=== PATIENT | male | born 1955 | race Caucasian/White ===

== ENCOUNTER 2016-09-30 05:54 | Inpatient (IN) | payer OTHER ==
--- NOTE | 2016-09-26 15:31 | HPE ---
DATE OF ADMISSION: 09/30/2016 ATTENDING PHYSICIAN: Dr. Srinivas Foster ADMISSION DIAGNOSIS: Back pain, pain radiating to both lower extremities. HISTORY: This is a pleasant 61-year-old male patient with progressive back pain and pain radiating down both legs, he has inability to walk more than a quarter mile without symptoms into both lower extremities. He has failed to improve with activity modification, nonsteroidal anti-inflammatory drugs (NSAIDS) in the form of Naproxen and physical therapy, continues to have symptoms with normal day-to-day activities. He has also been through epidural steroid injections without much improvement. His x-rays of his lumbar spine are notable for multilevel degenerative changes and a grade 1 spondylolisthesis at L4-5. MRI is consistent with severe spinal stenosis at 3-4, at 2-3 and 4-5 as well as a grade 1 spondylolisthesis at 4-5. Medical optimization pending with Dr. Yung, though is not present for review today. ALLERGIES: PENICILLIN from when he was a child and it caused hives. He has had numerous procedures before any he believes he has used cephalexin but he is not quite sure. CURRENT MEDICATIONS: He is on Flonase 50 mcg two sprays in each nostril daily. He has discontinued his aspirin and his naproxen. He also discontinued his Percocet. MEDICAL CONDITIONS: Include amaurosis fugax. He also has trigeminal neuralgia, psoriasis, elevated cholesterol and carotid artery stenosis. He has had a carpal tunnel release of both wrists. He has had complete dentures. He has also had a carotid artery bypass on the right side. FAMILY HISTORY: Heart disease in his mother and in his father. SOCIAL HISTORY: He is a former smoker. Does not use alcohol. REVIEW OF SYSTEMS: Denies fever or chills. Denies chest pain, shortness of breath or cough. Denies difficulty breathing. He did have an episode of fullness in his sinuses that he had been treated with Levaquin by his primary, but his sinuses are asymptomatic currently. No shortness of breath and no cough. No difficulty breathing. No change in his bowel or bladder habits. No loss of bowel or bladder control. He has persistent back pain and persistent pain down both legs with activities. PHYSICAL EXAMINATION: Today: Reveals a well-nourished, well-developed, alert male patient who walks with a slow gait. His gait is not wide-based. He does slightly favor the left side on examination today. Straight leg raise testing is equivocal bilaterally. Deep tendon reflexes are absent in knees, absent in ankles. Exam of the back reveals skin to be intact. No erythema, edema or ecchymosis. There is diffuse tenderness along the lumbar spine without step-offs or deviations. Neck is supple without adenopathy or jugular venous distention (JVD). Lungs are clear to auscultation without rales or wheeze. Heart regular rate and rhythm. Abdomen bowel sounds are present. Dorsalis pedis, posterior tibial pulses are palpable in both lower extremities, well-perfused bilateral lower extremities. Current vital signs are height of 5 feet 8 inches, weight 172 pounds, temperature 96, pulse 84, respirations 16, blood pressure 108/68. IMPRESSION: Symptomatic spinal stenosis and bilateral neurogenic claudication as well as spondylolisthesis at 4-5. PLAN: He is consented for a left unilateral decompression at L2-L5 as well as lumbar fusion L4-5 with pedicle screws.
[~2016-09-30] VITALS: Ht 175.3 cm; Wt 76.4 kg
[~2016-09-30 05:54] MED LIST: ACET500C PO; ASPI1TAB PO; AZEL0.1S3; CLAR10CA3 PO; FLUT1LOT; LEVA500T PO; NAPR500T2 PO; NEUR300C PO
[2016-09-30] MEDS ORDERED: LR 1,000 ML IV SCH ×2 (06:00→14:45)
[2016-09-30] MEDS ORDERED: PREGABALIN 75 MG CAP(LYRICA) PO ONE (06:00)
[2016-09-30] MEDS ORDERED: PERCOCET 5MG/325MG TAB PO ONE (06:00)
[2016-09-30] MEDS ORDERED: BACITRACIN PWD 50,000 UNITS VIAL As Ordered ONE (07:13)
[2016-09-30] MEDS ORDERED: LIDOCAINE 2% INJ 100 MG/5 ML SDV (FOR ANES.) As Ordered ONE (07:13)
[2016-09-30] MEDS ORDERED: VANCOMYCIN HCL 500 MG/10 ML VIAL (J3370) As Ordered ONE (07:13)
[2016-09-30] MEDS ORDERED: BUPIVACAINE/EPIN 0.25% 30 ML VIAL As Ordered ONE (07:13)
[2016-09-30] MEDS ORDERED: ROCURONIUM BROMIDE 50 MG/5 ML VIAL As Ordered ONE ×4 (07:13→17:21)
[2016-09-30] MEDS ORDERED: dexameTHASONE 4 MG/ML 1ML VIAL (J1100) As Ordered ONE (07:13)
[2016-09-30] MEDS ORDERED: PROPOFOL 200 MG/20 ML VIAL As Ordered ONE (07:13)
[2016-09-30] MEDS ORDERED: THROMBIN SOLN 20,000 UNITS KIT As Ordered ONE (07:14)
[2016-09-30] MEDS ORDERED: fentaNYL 250 MCG/5 ML INJECTION (J3010) As Ordered ONE (07:15)
[2016-09-30] MEDS ORDERED: MIDAZOLAM INJ 2 MG/2 ML VIAL (J2250) As Ordered ONE (07:15)
[2016-09-30] MEDS ORDERED: ONDANSETRON 4MG/2ML VIAL (J2405) As Ordered ONE ×2 (09:42→17:08)
[2016-09-30] MEDS ORDERED: GLYCOPYRROLATE INJ 0.2 MG/ML 2 ML VIAL As Ordered ONE ×2 (09:42→18:13)
[2016-09-30] MEDS ORDERED: NEOSTIGMINE 1MG/ML 5 ML SYRINGE (J2710) As Ordered ONE ×2 (09:42→18:11)
[2016-09-30] MEDS ORDERED: PHENYLephrine HCL 500 MCG/5 ML (100MCG/ML) SYRINGE (J2370) As Ordered ONE ×2 (10:31→12:19)
[2016-09-30] MEDS ORDERED: ePHEDrine SULFATE 25 MG/5 ML(5MG/ML) SYRINGE As Ordered ONE (10:55)
[2016-09-30] MEDS ORDERED: PHENYLEPHRINE INJ 10MG/ML VIAL (J2370) As Ordered ONE (11:25)
[2016-09-30] MEDS ORDERED: HYDROmorphone HCL 2 MG/ML 1ML VIAL (J1170) As Ordered ONE ×2 (11:37→17:44)
[2016-09-30] MEDS ORDERED: ceFAZolin 2 GM/D5W 50 ML IV BAG (J0690) As Ordered ONE (12:22)
--- NOTE | 2016-09-30 12:59 | REP ---
Partial lumbar spine series: Cross-table lateral single view. History: Spinal stenosis. Findings: A single cross-table lateral view time stamp 9 a.m. demonstrates an intraoperative metallic probe at the dorsal aspect of the spinal canal at the level of the L4-5 disc. Signed by Juan C Crump MD 09/30/2016 02:34 P
[2016-09-30] MEDS ORDERED: HYDROmorphone HCL 1 MG/ML SYRINGE (J1170) IV PRN ×3 (14:45→15:00)
[2016-09-30] MEDS ORDERED: fentaNYL 100 MCG/2 ML INJECTION (J3010) IV PRN (14:45)
[2016-09-30] MEDS ORDERED: ONDANSETRON 4MG/2ML VIAL (J2405) IV PRN (14:45)
[2016-09-30] MEDS ORDERED: ACETAMINOPHEN TAB 650MG DOSE (2X325MG) PO PRN (15:00)
[2016-09-30] MEDS ORDERED: PROMETHAZINE INJ 25 MG/ML VIAL (J2550) IV PRN (15:00)
[2016-09-30 15:45] VITALS: BP 109/63
[2016-09-30 16:15] VITALS: BP 99/63
--- NOTE | 2016-09-30 16:37 | RO ---
DATE OF PROCEDURE: 09/30/2016 PREOPERATIVE DIAGNOSES: Lumbar spinal stenosis multilevel L2-3, 3-4, 4-5, lumbar spondylolisthesis L4-5, neurogenic claudication. POSTOPERATIVE DIAGNOSES: Lumbar spinal stenosis multilevel L2-3, 3-4, 4-5, lumbar spondylolisthesis L4-5, neurogenic claudication. PROCEDURE PERFORMED: Includes the following, posterior lumbar left unilateral laminectomy and decompression L2-L5 with posterior spinal fusion intertransverse technique L4-5. SPECIFIC CODING FOR THE PROCEDURES: L2 left unilateral laminectomy for decompression of thecal sac and nerve roots, L3 unilateral laminectomy left additional level, L4 unilateral laminectomy left additional level, L5 unilateral laminectomy additional level. Posterior arthrodesis intertransverse type at L4-5. Posterior non-segmental instrumentation at L4-5. Pedicle screws, right iliac crest morselized autograft for spine surgery harvested through a separate fascial incision, 15 mL of crushed cancellus chips donor allograft used. SURGEON: Dr. Foster INSIDE SALES ASSISTANT: Joselito Alonzo, UGO. ESTIMATED BLOOD LOSS: 350 mL replaced with crystalloid. ANESTHESIA: General. COMPLICATIONS: None. INDICATIONS: 61-year-old gentleman with progressive discomfort radiating to both legs, going on for a number of months. Failing numerous conservative management with MRI and plain x-ray evidence of both spinal stenosis as well as spondylolisthesis. The spinal stenosis spans L2-L5 and spondylolisthesis of L4-5. Next, the patient has elected for operative intervention. Consent reviewed in detail including a aline discussion of the pathology involved, the procedure proposed, alternatives including doing nothing, risks including but not limited to pain, failure, infection, bleeding blood loss, incomplete relief of symptoms, nerve injury, need for more surgery and other problems. The patient agrees to proceed. OPERATIVE COURSE: Identified in the holding area. Site and side verified. Brought to the operating room. General endotracheal anesthesia was administered. He was positioned on the Andriy frame for exposure of the lumbar spine. Once I and the news camera person were comfortable with the patient's positioning he was then sterilely prepped and draped in usual fashion for exposure of the lumbar spine. Next, time-out was accomplished. Mr. Alonzo initially stood on the patient's right and Lico on the patient's left, but throughout the procedure for different portions we did switch sides. The first portion of the procedure I accomplished using the loupe magnification as well headlamp. Next, one of the incision was infiltrated by Mr. Alonzo with 0.25% Marcaine with epinephrine based on bony landmarks. I made the incision with a #10 blade knife developed down through skin and subcuticular tissues to the posterior lumbar fascia. The incision length was approximately 15 cm long. Next, step-off at 4-5 was identified and the dissection continued down the interspace of 4-5. I utilized a high-speed bur to create a 5 mm divot in the posterior lamina of L4. I placed a [employer] probe in the divot. We obtained a cross-table lateral x-ray to verify our level. Once this was accomplished we then continued the dissection superiorly on the patient's left side up to the L2-3 level and inferiorly over L5 and dissected out over the transverse processes of 4 and 5 on the patient's left side. We similarly exposed the interspace at the 4-5 on the patient's right side including the dissection with Mr. Alonzo utilizing the Jazmine retractors to assist out of the transverse processes of L4 and L5 but not extending superiorly as much. Next, once the exposure was accomplished the appropriate retractors were installed to expose L2-L5. I removed some posterior lamina using [place] and this bone was retained as bone graft. Next, once this was accomplished the operating microscope was brought in for the next portion of the procedure. Mr. Alonzo looked through oculars on the microscope to the right side. I through oculars on the microscope left side. Use of the scope facilitated continued participation of Mr. Alonzo, who retracted and also used suction and safe use of the high-speed bur which was utilized to implement a left unilateral laminectomy beginning at L5 and continuing superiorly through the L2 level. Once the lateral portion laminectomy was accomplished, I did undercut spinous processes of 2, 3, 4 and the top of L5 to further decompress the midline and I utilized curved curettes and Kerrison's to remove ligamentum flavum very carefully. Once this portion of the dissection was accomplished I probed over the horizon in the contralateral lateral recess, the patient's right side and removed subarticular stenotic ligamentum flavum using the curette as well as the curved number 2 mm Kerrison's. Next, I also decompressed the patient's right lateral recess using #2 Kerrison's and the curved Kerrison's extending from 2 through L5. Next, once the decompression was adequate, I inspected for bleeding and I did not appreciate any bleeding. I did not appreciate any cerebrospinal fluid (CSF) leak. Next, once the decompression was found to be adequate we irrigated using warm saline solution. Next, it was time for pedicle screws. We removed the microscope out of the operative field. I exchanged my loupe and headlamp magnification changed into lead gowns and re-gowned. With the C-ARM draped, we came in with the C-ARM. Next, in the lateral view we identified the pedicle. I identified visually the mammillary process of L5 on the patient's right side in the mammillary process of L4 on the right side. I utilized the drill to open the mammillary process of L5 and L4 and then I utilized the pedicle finder followed by the ball-tip finder followed by the tap, 5-5 type to tap the pedicle tracts at 4 and 5. Once I had tap the pedicle tracts, I began utilizing a ball-tip to verify that we were within pedicle and that we had a bony endplate. Next, once this was accomplished, I measured for a 40 mm screw at L5 and the 01/28/40 screw was installed by myself and visualized fluoroscopically and then we obtained bone graft from the right iliac crest through a separate fascial incision. Mr. Arevalolillie assisted with exposure with Jazmine retractors while I obtained the bone graft. This fascial incision was irrigated and closed over a dry Gelfoam. Next, we decorticated the transverse processes of 4 and 5 and I placed iliac crest bone graft over the transverse processes of 4 and 5. I also placed some of local bone. Local bone had been harvested using the Lukens trap. I placed a local bone over the iliac crest bone graft. Next, I obtained the 45 mm / screw for the right side at L4 and this was installed and verified fluoroscopically. Next, we switched sides and the same process was accomplished on the patient's left side including placement of the left L5 pedicle screw first including verification of pedicle track. Placement of the 40 mm screw at L5. Placement decortication of the transverse processes and placement of iliac crest bone graft between the transverse processes and this was followed by placement of the L4 screw including sounding the pedicle tracts with the ball-tip guide, 45 mm screw on the left side at L4. Next, connecting rods were then placed at L4-5 on the patient's left side. Next, continuing I retracted the soft tissue on the patient's right side with the Jazmine retractor and then Eloise Emilyarmandolillie installed the connecting ministerio of L4 and L5 on the patient's right side and placed the end caps and the counter torque device was utilized to secure the ministerio after the ministerio was placed in slight distraction. Next, once this was accomplished the remaining iliac crest and local bone graft as well as 15 mL of crushed cancellus bone were placed in the interlaminar space on the right side between the lamina 4 and 5. This was accomplished after irrigation. Also approximately 750 mg of vancomycin crystals were placed within the midline of the wound and over the pedicle screws. Next, fascial tissue was reapproximated with interrupted Vicryl stitch. Minnie fascia and the deep dermis reapproximated with interrupted Vicryl stitch. Nylon was utilized on skin and dressing was applied. The patient did have antibiotics redosed at 4 hours into the procedure. The patient was moved to the hospital bed and extubated and moved to the recovery room in good condition for further details please refer to medical record. Mr. Arevalolillie was present and participated in the entirety of the case in capacity of senior court office assistant.
[2016-09-30 17:15] VITALS: BP 119/65
[2016-09-30 18:15] VITALS: BP 109/66
[2016-09-30] MEDS: ASCORBIC ACID 500 MG TAB PO SCH (20:50)
[2016-09-30] MEDS: DOCUSATE SODIUM 100 MG CAP PO SCH (20:50)
[2016-09-30] MEDS: GABAPENTIN 300 MG CAP PO SCH (20:50)
[2016-09-30 22:00] VITALS: BP 132/61
[2016-09-30] MEDS: PERCOCET 5MG/325MG TAB PO PRN (22:33)
[2016-10-01 02:00] VITALS: BP 126/69
[2016-10-01] MEDS: PERCOCET 5MG/325MG TAB PO PRN ×2 (03:59→08:22)
[2016-10-01] MEDS: ASCORBIC ACID 500 MG TAB PO SCH ×2 (08:21→21:00)
[2016-10-01] MEDS: LORATADINE 10 MG TAB PO SCH (08:21)
[2016-10-01] MEDS: FLUTICASONE PROP 0.05% NASAL SPRAY 16 GM (FLONASE) SCH (08:21)
[2016-10-01] MEDS: MOM 30ML SUSPENSION UDC PO SCH (08:21)
[2016-10-01] MEDS: DOCUSATE SODIUM 100 MG CAP PO SCH ×2 (08:21→21:00)
[2016-10-01] MEDS: ASPIRIN 81 MG CHEW TABLET PO SCH (08:21)
[2016-10-01] MEDS: GABAPENTIN 300 MG CAP PO SCH ×2 (08:21→21:00)
--- NOTE | 2016-10-01 09:17 | REP ---
Lumbar spine series: AP and lateral views. History: Postop. Comparison images are from September 30, 2016. Findings: AP and lateral views of the lumbar spine demonstrate transpedicular screw ministerio fixation bilaterally in place across the L4-5 level unchanged alignment from yesterday's study. A laminectomy defect is visible at 4-5 as well. Signed by Juan C Crump MD 10/01/2016 02:32 P
[2016-10-01 14:00] VITALS: BP 133/66
[2016-10-01 19:15] VITALS: BP 143/74
[2016-10-01 20:15] VITALS: BP 120/59
[2016-10-01 22:00] VITALS: BP 143/74
[2016-10-02] MEDS: CelecoXIB (CeleBREX) 100 MG CAP PO PRN (02:55)
[2016-10-02 06:00] VITALS: BP 121/69
[2016-10-02] MEDS: MOM 30ML SUSPENSION UDC PO SCH (08:18)
[2016-10-02] MEDS: ASPIRIN 81 MG CHEW TABLET PO SCH (08:18)
[2016-10-02] MEDS: LORATADINE 10 MG TAB PO SCH (08:18)
[2016-10-02] MEDS: ASCORBIC ACID 500 MG TAB PO SCH ×2 (08:18→22:56)
[2016-10-02] MEDS: DOCUSATE SODIUM 100 MG CAP PO SCH ×2 (08:18→21:00)
[2016-10-02] MEDS: FLUTICASONE PROP 0.05% NASAL SPRAY 16 GM (FLONASE) SCH (08:20)
[2016-10-02] MEDS: GABAPENTIN 300 MG CAP PO SCH ×2 (08:20→21:00)
[2016-10-02] MEDS: PERCOCET 5MG/325MG TAB PO PRN ×4 (08:22→22:57)
[2016-10-02] MEDS ORDERED: MAGNESIUM CITRATE 300 ML BTL PO ONE (14:00)
[2016-10-02 22:00] VITALS: BP 129/68
[2016-10-03] MEDS: PERCOCET 5MG/325MG TAB PO PRN ×3 (03:33→12:47)
[2016-10-03 06:00] VITALS: BP 113/55
[2016-10-03] MEDS: MOM 30ML SUSPENSION UDC PO SCH (07:43)
[2016-10-03] MEDS: ASCORBIC ACID 500 MG TAB PO SCH (08:11)
[2016-10-03] MEDS: ASPIRIN 81 MG CHEW TABLET PO SCH (08:11)
[2016-10-03] MEDS: DOCUSATE SODIUM 100 MG CAP PO SCH (08:11)
[2016-10-03] MEDS: CelecoXIB (CeleBREX) 100 MG CAP PO PRN (08:11)
[2016-10-03] MEDS: LORATADINE 10 MG TAB PO SCH (08:11)
[2016-10-03] MEDS: GABAPENTIN 300 MG CAP PO SCH ×2 (08:11→08:14)
[2016-10-03] MEDS: FLUTICASONE PROP 0.05% NASAL SPRAY 16 GM (FLONASE) SCH (08:12)
--- NOTE | 2016-10-09 09:59 | DSES ---
DATE OF ADMISSION: 09/30/2016 DATE OF DISCHARGE: 10/03/2016 ATTENDING: Dr. Foster ADMITTING DIAGNOSES: 1. Lumbar spinal stenosis L2 through L5. 2. Lumbar spondylolisthesis L4-5. 3. Neurogenic claudication. OTHER DIAGNOSES: 1. Amaurosis fugax. 2. Trigeminal neuralgia. 3. Psoriasis. 4. Elevated cholesterol. 5. Carotid artery stenosis. DISCHARGE DIAGNOSES: 1. Lumbar spinal stenosis L2 through L5. 2. Lumbar spondylolisthesis L4-5. 3. Neurogenic claudication. 4. Status post lumbar decompression L2 through L5 and lumbar posterior interbody fusion L4-5. HISTORY: This is a pleasant 61-year-old male with progressively worsening back pain and pain radiating to both legs. He failed to improve with conservative measures to include anti-inflammatories, physical therapy and epidural steroid injections. He elected for surgery for his continued symptoms. Studies were consistent with spinal stenosis and spondylolisthesis of the lumbar spine. OPERATION PERFORMED: Lumbar decompression unilateral laminectomy L2 through L5 and posterior spinal fusion interbody transverse at L4-5. HOSPITAL COURSE: The patient was admitted on day of surgery and underwent the above listed procedure which was uneventful. He did well in the postoperative period. His hospital course was without complications. He continued to improve throughout his hospital stay. On day of discharge, he was doing well and weightbearing as tolerated on the lower extremities. He will use his back brace as directed. He will take oral pain medications for pain control. He will resume his preoperative medications and diet. He was given instructions to include, but not limited to wound monitoring, activity limitations and the wear of the back brace. He will follow up in our office in 7-10 days for surgical followup. Please refer to the medical record for further details.
== END 2016-10-03 13:07 | disposition home or self-care (01) | DRG 304 ==
LOC: M OR 05:54 → M MS5PR 15:30
PROVIDERS: ADMIT Orthopaedic Surgery; ATTEND Orthopaedic Surgery
PROC: 0SG00AJ Fusion of Lumbar Vertebral Joint with Interbody Fusion Device, Posterior Approach, Anterior Column, Open Approach (ICD-10-PCS; 2016-09-30)
PROC: 0QB30ZZ Excision of Left Pelvic Bone, Open Approach (ICD-10-PCS; 2016-09-30)
PROC: 0SG00A1 (ICD-10-PCS; principal; 2016-09-30 07:30)
DX: M48.06 Spinal stenosis, lumbar region (principal); G45.3 Amaurosis fugax; G50.0 Trigeminal neuralgia; Z87.891 Personal history of nicotine dependence

== ENCOUNTER → 2017-05-13 | Outpatient (REF) | payer OTHER ==
[~2017-05-13] MED LIST changes: +LEVA1TAB2 PO; -LEVA500T PO; -NAPR500T2 PO; +NAPR500T3 PO
[2017-05-13 15:01] LABS: MEAN CORPUSCULAR HEMOGLOBIN 30.6 pg (27.0-33.0); MEAN CORPUSCULAR HGB CONC 33.2 g/dl (32.0-36.5); RED CELL DISTRIBUTION WIDTH 13.1 % (11.5-14.5); WHITE BLOOD COUNT 5.2 K/mm3 (4.0-10.0)
[2017-05-13 15:15] LABS: ALBUMIN 3.4 GM/DL (3.2-5.2); ALBUMIN/GLOBULIN RATIO 1.13 (1.00-1.93); ALKALINE PHOSPHATASE 91 U/L (45-117); ALT/SGPT 30 U/L (12-78); ANION GAP 7 MEQ/L (8-16); AST/SGOT 17 U/L (15-37); BILIRUBIN,TOTAL 0.5 MG/DL (0.2-1.0); BLOOD UREA NITROGEN 15 MG/DL (7-18); CALCIUM LEVEL 8.1 MG/DL (8.8-10.2); CARBON DIOXIDE LEVEL 27 MEQ/L (21-32); CHLORIDE LEVEL 109 MEQ/L (98-107); CHOLESTEROL LEVEL 239 MG/DL (<200); CREATININE FOR GFR 0.95 MG/DL (0.70-1.30); FERRITIN 49 NG/ML (26-388); GLOMERULAR FILTRATION RATE > 60.0 (>49); GLUCOSE, FASTING 88 MG/DL (80-110); PERCENT SATURATION 29.3 % (19.7-50.0); POTASSIUM SERUM 4.6 MEQ/L (3.5-5.1); SODIUM LEVEL 143 MEQ/L (136-145); TOTAL IRON BINDING CAPACITY 307 UG/DL (250-450); TOTAL PROTEIN 6.4 GM/DL (6.4-8.2); TRIGLYCERIDES LEVEL 103 MG/DL (<150)
== END ==
LOC: M SFHCLACO 10:16
PROVIDERS: ATTEND Physician Assistant
DX: E78.2 Mixed hyperlipidemia (principal); G45.3 Amaurosis fugax; I65.23 Occlusion and stenosis of bilateral carotid arteries; R79.89 Other specified abnormal findings of blood chemistry

== ENCOUNTER → 2017-09-09 | Outpatient (REF) | payer OTHER ==
[2017-09-09 16:37] LABS: ALBUMIN 3.7 GM/DL (3.2-5.2); ALBUMIN/GLOBULIN RATIO 1.16 (1.00-1.93); ALKALINE PHOSPHATASE 103 U/L (45-117); ALT/SGPT 33 U/L (12-78); ANION GAP 5 MEQ/L (8-16); AST/SGOT 18 U/L (7-37); BILIRUBIN,TOTAL 0.6 MG/DL (0.2-1.0); BLOOD UREA NITROGEN 14 MG/DL (7-18); CALCIUM LEVEL 8.8 MG/DL (8.8-10.2); CARBON DIOXIDE LEVEL 31 MEQ/L (21-32); CHLORIDE LEVEL 107 MEQ/L (98-107); CHOLESTEROL LEVEL 266 MG/DL (<200); CHOLESTEROL RISK RATIO 4.433 (<5); FERRITIN 49 NG/ML (26-388); GLOMERULAR FILTRATION RATE > 60.0 (>49); GLUCOSE, FASTING 100 MG/DL (80-110); HDL CHOLESTEROL 60 MG/DL (>40); IRON (FE) 114 UG/DL (65-175); NON-HDL-C 206 MG/DL; PERCENT SATURATION 35.1 % (19.7-50.0); POTASSIUM SERUM 4.6 MEQ/L (3.5-5.1); PSA SCREENING 0.69 NG/ML (< 4.0); SODIUM LEVEL 143 MEQ/L (136-145); TOTAL IRON BINDING CAPACITY 325 UG/DL (250-450); TOTAL PROTEIN 6.9 GM/DL (6.4-8.2); TRIGLYCERIDES LEVEL 120 MG/DL (<150)
[2017-09-09 17:01] LABS: HEMATOCRIT 43.1 % (42.0-52.0); MEAN CORPUSCULAR HEMOGLOBIN 29.6 pg (27.0-33.0); MEAN CORPUSCULAR HGB CONC 32.5 g/dl (32.0-36.5); MEAN CORPUSCULAR VOLUME 91.1 fl (80.0-96.0); PLATELET COUNT, AUTOMATED 252 10^3/uL (150-450); RED BLOOD COUNT 4.73 10^6/uL (4.30-6.10); WHITE BLOOD COUNT 6.1 10^3/uL (4.0-10.0)
== END ==
LOC: M SFHCLACO 10:04
DX: R79.89 Other specified abnormal findings of blood chemistry (principal); G45.3 Amaurosis fugax; E78.2 Mixed hyperlipidemia; I65.23 Occlusion and stenosis of bilateral carotid arteries; Z12.5 Encounter for screening for malignant neoplasm of prostate

== ENCOUNTER → 2017-09-24 | Outpatient (CLI) | payer OTHER | LOC: M SLEEP HO 12:41 | DX: F51.01 Primary insomnia (principal) ==

== ENCOUNTER 2017-11-24 11:12 | Day surgery (SDC) | payer OTHER ==
[2017-11-24] MEDS ORDERED: NS 1,000 ML IV (11:45)
[2017-11-24] MEDS ORDERED: PROPOFOL 200 MG/20 ML VIAL As Ordered (13:56)
== END 2017-11-24 15:12 | disposition home or self-care (01) ==
LOC: M OPP 11:12
DX: K62.5 Hemorrhage of anus and rectum (principal); K59.00 Constipation, unspecified; D12.2 Benign neoplasm of ascending colon; D12.4 Benign neoplasm of descending colon; K57.30 Diverticulosis of large intestine without perforation or abscess without bleeding; K64.8 Other hemorrhoids; K62.89 Other specified diseases of anus and rectum; E78.5 Hyperlipidemia, unspecified; M51.9 Unspecified thoracic, thoracolumbar and lumbosacral intervertebral disc disorder; G45.3 Amaurosis fugax; L40.50 Arthropathic psoriasis, unspecified; G50.0 Trigeminal neuralgia; F10.21 Alcohol dependence, in remission; Z86.73 Personal history of transient ischemic attack (TIA), and cerebral infarction without residual deficits; Z87.891 Personal history of nicotine dependence; Z88.8 Allergy status to other drugs, medicaments and biological substances; Z88.0 Allergy status to penicillin; Z79.82 Long term (current) use of aspirin; Z79.899 Other long term (current) drug therapy; Z98.1 Arthrodesis status
CPT/HCPCS: 45380

== ENCOUNTER → 2017-12-11 | Outpatient (REF) | payer OTHER ==
[2017-12-11 15:15] LABS: ALBUMIN 3.7 GM/DL (3.2-5.2); ALBUMIN/GLOBULIN RATIO 1.09 (1.00-1.93); ALKALINE PHOSPHATASE 106 U/L (45-117); ALT/SGPT 53 U/L (12-78); ANION GAP 6 MEQ/L (8-16); AST/SGOT 30 U/L (7-37); BILIRUBIN,TOTAL 0.6 MG/DL (0.2-1.0); BLOOD UREA NITROGEN 13 MG/DL (7-18); CALCIUM LEVEL 8.8 MG/DL (8.8-10.2); CARBON DIOXIDE LEVEL 31 MEQ/L (21-32); CHLORIDE LEVEL 106 MEQ/L (98-107); CHOLESTEROL LEVEL 273 MG/DL (<200); CHOLESTEROL RISK RATIO 4.475 (<5); CREATININE FOR GFR 1.11 MG/DL (0.70-1.30); GLOMERULAR FILTRATION RATE > 60.0 (>49); GLUCOSE, FASTING 97 MG/DL (70-100); HDL CHOLESTEROL 61 MG/DL (>40); NON-HDL-C 212 MG/DL; SODIUM LEVEL 143 MEQ/L (136-145); TOTAL PROTEIN 7.1 GM/DL (6.4-8.2); TRIGLYCERIDES LEVEL 125 MG/DL (<150)
== END ==
LOC: M SFHCLACO 09:35
DX: E78.2 Mixed hyperlipidemia (principal); G45.3 Amaurosis fugax; I65.23 Occlusion and stenosis of bilateral carotid arteries

== ENCOUNTER → 2018-04-07 | Outpatient (REF) | payer OTHER ==
[2018-04-07 15:23] LABS: ALBUMIN 3.5 GM/DL (3.2-5.2); ALBUMIN/GLOBULIN RATIO 1.06 (1.00-1.93); ALKALINE PHOSPHATASE 94 U/L (45-117); ALT/SGPT 26 U/L (12-78); ANION GAP 7 MEQ/L (8-16); AST/SGOT 17 U/L (7-37); BILIRUBIN,TOTAL 0.5 MG/DL (0.2-1.0); BLOOD UREA NITROGEN 16 MG/DL (7-18); CALCIUM LEVEL 8.5 MG/DL (8.8-10.2); CARBON DIOXIDE LEVEL 29 MEQ/L (21-32); CHLORIDE LEVEL 108 MEQ/L (98-107); CHOLESTEROL LEVEL 246 MG/DL (<200); CHOLESTEROL RISK RATIO 4.555 (<5); CREATININE FOR GFR 0.99 MG/DL (0.70-1.30); GLOMERULAR FILTRATION RATE > 60.0 (>49); GLUCOSE, FASTING 90 MG/DL (70-100); HDL CHOLESTEROL 54 MG/DL (>40); NON-HDL-C 192 MG/DL; POTASSIUM SERUM 4.4 MEQ/L (3.5-5.1); SODIUM LEVEL 144 MEQ/L (136-145); TOTAL PROTEIN 6.8 GM/DL (6.4-8.2); TRIGLYCERIDES LEVEL 120 MG/DL (<150)
== END ==
LOC: M SFHCLACO 09:48
DX: E78.2 Mixed hyperlipidemia (principal); G45.3 Amaurosis fugax; I65.23 Occlusion and stenosis of bilateral carotid arteries
CPT/HCPCS: 80053

== ENCOUNTER 2019-03-18 15:03 | Observation (INO) | payer OTHER ==
[~2019-03-18] VITALS: Ht 175.3 cm; Wt 84.3 kg
[~2019-03-18 15:03] MED LIST changes: -ASPI1TAB PO; +ASPI81TA26 PO; +FLUO5OI TOP; +FLUOCRE TOP; +NAPR-885 PO; -NAPR500T3 PO
[2019-03-18] MEDS ORDERED: CARB200T98 PO ×2 (15:24→21:48)
[2019-03-18 15:47] LABS: BASO % 0.5 % (0.0-1.0); EOS # 0.1 10^3/uL (0.0-0.50); EOS % 1.8 % (0.0-3.0); HEMATOCRIT 44.6 % (42.0-52.0); HEMOGLOBIN 14.6 g/dl (13.5-17.5); LYMPH # 1.4 10^3/uL (1.5-4.5); LYMPH % 25.1 % (24.0-44.0); MEAN CORPUSCULAR HGB CONC 32.7 g/dl (32.0-36.5); MEAN CORPUSCULAR VOLUME 91.6 fl (80.0-96.0); MONO # 0.5 10^3/uL (0.0-0.8); MONO % 9.3 % (0.0-5.0); NEUTROPHILS # 3.5 10^3/uL (1.8-7.7); NEUTROPHILS % 62.9 % (36.0-66.0); PLATELET COUNT, AUTOMATED 235 10^3/uL (150-450); RED BLOOD COUNT 4.87 10^6/uL (4.30-6.10); WHITE BLOOD COUNT 5.6 10^3/uL (4.0-10.0)
--- NOTE | 2019-03-18 15:59 | REP ---
CT of the brain without IV contrast: There are no comparisons. There is no hemorrhage. There is no edema, mass effect or midline shift. The cortical stripe is unremarkable. Ventricles are normal size. The visualized paranasal sinuses and mastoid air cells are clear. Impression: There is no hemorrhage, acute infarct or mass. Otherwise, negative CT study of the brain. Electronically Signed by Booker Orozco MD 03/18/2019 03:51 P
[2019-03-18 16:07] LABS: ALBUMIN 4.1 GM/DL (3.2-5.2); ALT/SGPT 30 U/L (12-78); BILIRUBIN,TOTAL 0.2 MG/DL (0.2-1.0); BLOOD UREA NITROGEN 10 MG/DL (7-18); CALCIUM LEVEL 9.1 MG/DL (8.8-10.2); CARBON DIOXIDE LEVEL 29 MEQ/L (21-32); CHLORIDE LEVEL 106 MEQ/L (98-107); CREATININE FOR GFR 1.03 MG/DL (0.70-1.30); GLOMERULAR FILTRATION RATE > 60.0 (>49); GLUCOSE, FASTING 92 MG/DL (70-100); POTASSIUM SERUM 4.3 MEQ/L (3.5-5.1); SODIUM LEVEL 140 MEQ/L (136-145); TOTAL PROTEIN 7.9 GM/DL (6.4-8.2)
[2019-03-18] MEDS ORDERED: LABETALOL HCL 100 MG/20 ML VIAL IV STA (16:24)
[2019-03-18 16:37] VITALS: BP 182/102
[2019-03-18 16:59] LABS: CARBAMAZEPINE (TEGRETOL) LEVEL 7.4 UG/ML (4.0-10.0)
--- NOTE | 2019-03-18 20:12 | REPVR ---
EXAM: MR Angiogram Head Without Contrast, Arteries EXAM DATE/TIME: 03/18/2019 7:39 PM CLINICAL HISTORY: 64 years old, male; Visual disturbance; Diplopia; Patient HX: PT states double vision for a couple of days and blurred vision today. ; Additional info: Tias TECHNIQUE: Imaging protocol: MR angiogram head without contrast. Exam focused on the arteries. COMPARISON: CT Head without contrast 03/18/2019 3:34 PM FINDINGS: Right internal carotid artery: Unremarkable. Intracranial segment is patent with no significant stenosis. No aneurysm. Right anterior cerebral artery: Unremarkable. No occlusion or significant stenosis. No aneurysm. Right middle cerebral artery: Unremarkable. No occlusion or significant stenosis. No aneurysm. Right posterior cerebral artery: Unremarkable. No occlusion or significant stenosis. No aneurysm. Right vertebral artery: Unremarkable. No occlusion or significant stenosis. No aneurysm. Left internal carotid artery: Mild narrowing of the proximal left intracranial carotid artery with mildly reduced caliber of the cavernous carotid segment. Left anterior cerebral artery: Unremarkable. No occlusion or significant stenosis. No aneurysm. Left middle cerebral artery: Unremarkable. No occlusion or significant stenosis. No aneurysm. Left posterior cerebral artery: Unremarkable. No occlusion or significant stenosis. No aneurysm. Left vertebral artery: Unremarkable. No occlusion or significant stenosis. No aneurysm. Basilar artery: Unremarkable. No occlusion or significant stenosis. No aneurysm. IMPRESSION: No acute findings. Electronically signed by: Michael Chiu On 03/18/2019 20:12:09 PM
--- NOTE | 2019-03-18 20:15 | REPVR ---
EXAM: MR Head Without Contrast EXAM DATE/TIME: 03/18/2019 7:39 PM CLINICAL HISTORY: 64 years old, male; Visual disturbance; Patient HX: Double vision for a couple of days, blurred vision today. ; Additional info: Tias TECHNIQUE: Imaging protocol: MR of the head without contrast. COMPARISON: CT Head without contrast 03/18/2019 3:34 PM FINDINGS: Brain: Normal. No acute infarct. No hemorrhage. Scattered foci of T2 lengthening demonstrated in the periventricular, centrum semiovale and subcortical white matter. No significant white matter disease. No edema. Ventricles: Normal. No ventriculomegaly. Bones/joints: Unremarkable. Soft tissues: Normal. Sinuses: Normal as visualized. No acute sinusitis. Mastoid air cells: Normal as visualized. No mastoid effusion. Orbits: Unremarkable. Sella: There is downward displacement of the pituitary gland secondary to a defect in the diaphragmatic sella consistent with the empty sella syndrome. IMPRESSION: No acute findings. Electronically signed by: Michael Chiu On 03/18/2019 20:15:25 PM
--- NOTE | 2019-03-18 20:59 | ECGEPIP ---
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
[2019-03-18] MEDS ORDERED: MAALOX 30 ML SUSP *UDC PO PRN (23:30)
[2019-03-18] MEDS ORDERED: ACETAMINOPHEN TAB 650MG DOSE (2X325MG) PO PRN (23:30)
[2019-03-18] MEDS ORDERED: MOM 30ML SUSPENSION UDC PO PRN (23:30)
--- NOTE | 2019-03-18 23:41 | HPEPDOC ---
General Date of Admission 03/18/19 Date of Service: Mar 18, 2019 Attending Physician: BRITTA MOSS MD Chief Complaint The patient is a 64-year-old male admitted with a reason for visit of S/S Stroke . Source: Patient Exam Limitations: No limitations Timing/Duration: Day(s) ( 3 days) Severity: Moderate Associated Symptoms: Other (, blurred vision, double vision) History of Present Illness This is a 64 years old white male with past medical history of CVA in the past and also had a carotid endarterectomy done in 2016 presented with chief complaints of double vision which started on Friday and it Spontaneously resolved after half hour. On Friday he had a slight double vision, but resolved again bus today. He is a persistent double vision and decided to come to ER for further evaluation. Denies any motor or sensory or cranial nerve weakness, no chest pain, no shortness of breath, no nausea, vomiting, diarrhea, no headache Home Medications Scheduled Aspirin (Aspirin EC) 81 Mg Tab, 81 MG PO DAILY, (Reported) Carbamazepine (Carbamazepine ER) 200 Mg Tab.er.12h, 200 MG PO BID, (Reported) Scheduled PRN Naproxen (Naproxen) 500 Mg Tab, 500 MG PO BID PRN for PAIN, (Reported) Allergies Coded Allergies: penicillin G (Verified Allergy, Unknown, hives, 03/18/19) Alarkjh-Uck-Big Reductase Inhibitor (Verified Adverse Reaction, Unknown, myalgia, 03/18/19) ezetimibe (Verified Adverse Reaction, Unknown, myalgia, 03/18/19) Past Medical History Medical History CVA, carotid artery disease with end- arterectomy on right side, trigeminal neuralgia Surgical History L4-5 fusion Family History No family history of a CVA or cancer, etc. Social History * Smoker: non-smoker Alcohol: Denies Drugs: denies A-FIB/CHADSVASC A-FIB History Current/History of A-Fib/PAF?: No Review of Systems Constitutional: Denies: Chills, Fever, Malaise, Night Sweats, Weakness, Fatigue, Weight Loss, Lethargy, Other Eyes: Reports: Other (, double vision) ENT: Denies: Head Aches, Ear Pain, Dysphagia, Sinus Congestion, Post Nasal Drip, Sore Throat, Epistaxis, Other Symptoms Pulmonary: Denies: Dyspnea, Cough, Pleuritic Chest Pain, Other Symptoms Cardiovascular: Denies: Chest Pain, Palpitations, Orthopnea, Paroxysmal Noc. Dyspnea, Edema, Lt Headedness, Other Symptoms Gastrointestinal: Denies: Nausea, Vomiting, Abdominal Pain, Diarrhea, Constipation, Melena, Hematochezia, Other Symptoms Genitourinary: Denies: Dysuria, Frequency, Incontinence, Hematuria, Retention, Other Symptoms Hematologic: Denies: Bruising, Bleeding Excessively, Petecchia, Purpura, Enlarged Lymph Nodes, Other Hematologic Endocrine: Denies: Polydipsia, Polyphagia, Polyuria, Heat Intolerance, Cold Intolerance, Other Endocrine Sx Musculoskeletal: Denies: Neck Pain, Back Pain, Shoulder Pain, Arm Pain, Hand Pain, Leg Pain, Foot Pain, Joint Pain, Muscle Pain, Spasms, Other Symptoms Neurological: Denies: Weakness, Numbness, Incoordination, Change in speech, Confusion, Seizures, Other Symptoms Psych: Denies: Mood Normal, Anxiety, Depression, Memory Issues, Thoughts of Self Harm, Anger, Thoughts of Harming Other, Other Psych Physical Examination General Exam: Positive: Alert, Cooperative Eye Exam: Positive: PERRLA, Conjunctiva & lids normal ENT Exam: Positive: Atraumatic, Mucous membr. moist/pink Neck Exam: Positive: Supple Chest Exam: Positive: Clear to auscultation, Normal air movement Heart Exam: Positive: Rate Normal, Normal S1, Normal S2 Abdomen Exam: Positive: Normal bowel sounds Extremity Exam: Positive: Normal pulses Skin Exam: Positive: Nl turgor and temperature Neuro Exam: Positive: Normal Gait, Normal Speech Psych Exam: Positive: Mental status NL, Mood NL, Oriented x 3 Vital Signs Vital Signs Date Time Temp Pulse Resp B/P (MAP) Pulse Ox O2 Delivery O2 Flow Rate FiO2 03/18/19 21:34 60 178/94 (122) 97 Room Air 03/18/19 19:45 18 03/18/19 15:03 97.6 Laboratory Data Labs 24H Laboratory Tests 2 03/18/19 15:34: Immature Granulocyte % (Auto) 0.4, White Blood Count 5.6, Red Blood Count 4.87, Hemoglobin 14.6, Hematocrit 44.6, Mean Corpuscular Volume 91.6, Mean Corpuscular Hemoglobin 30.0, Mean Corpuscular Hemoglobin Concent 32.7, Red Cell Distribution Width 13.1, Platelet Count 235, Neutrophils (%) (Auto) 62.9, Lymphocytes (%) (Auto) 25.1, Monocytes (%) (Auto) 9.3H, Eosinophils (%) (Auto) 1.8, Basophils (%) (Auto) 0.5, Neutrophils # (Auto) 3.5, Lymphocytes # (Auto) 1.4L, Monocytes # (Auto) 0.5, Eosinophils # (Auto) 0.1, Basophils # (Auto) 0.0, Nucleated Red Blood Cells % (auto) 0.0, Anion Gap 5L, Glomerular Filtration Rate > 60.0, Blood Urea Nitrogen 10, Creatinine 1.03, Sodium Level 140, Potassium Level 4.3, Chloride Level 106, Carbon Dioxide Level 29, Calcium Level 9.1, Aspartate Amino Transf (AST/SGOT) 17, Alanine Aminotransferase (ALT/SGPT) 30, Alkaline Phosphatase 128H, Total Bilirubin 0.2, Total Protein 7.9, Albumin 4.1, Albumin/Globulin Ratio 1.08, Carbamazepine (Tegretol) Level 7.4 CBC/BMP Laboratory Tests 03/18/19 15:34 Red Blood Count 4.87, Mean Corpuscular Volume 91.6, Mean Corpuscular Hemoglobin 30.0, Mean Corpuscular Hemoglobin Concent 32.7, Red Cell Distribution Width 13.1, Neutrophils (%) (Auto) 62.9, Lymphocytes (%) (Auto) 25.1, Monocytes (%) (Auto) 9.3 H, Eosinophils (%) (Auto) 1.8, Basophils (%) (Auto) 0.5, Neutrophils # (Auto) 3.5, Lymphocytes # (Auto) 1.4 L, Monocytes # (Auto) 0.5, Eosinophils # (Auto) 0.1, Basophils # (Auto) 0.0, Calcium Level 9.1, Aspartate Amino Transf (A ST/SGOT) 17, Alanine Aminotransferase (ALT/SGPT) 30, Alkaline Phosphatase 128 H, Total Bilirubin 0.2, Total Protein 7.9, Albumin 4.1 Problems (1) TIA (transient ischemic attack) Status: Acute Problem Specific Plan: Consult Specialist Problem Text: 64 years old gentleman with past medical history of CVA secondary to right coronary artery stenosis and status post right carotid endarterectomy was admitted with chief complaints of double vision from his right eye since last 3 days which progressively getting wors patient. CTA head and MRI of the brain essentially within normal limits and there is no evidence of any ischemic or embolic thromboembolism. Patient will be admitted for further workup including repeat carotid artery duplex and echocardiogram and also will probably require neurology consult with Dr. King who follows him outpatient. Admitted to PCU with monitor Telemetry monitoring Continue aspirin Patient is not on statins. Will request lipid profile. This a.m. and then he can be started on Echocardiogram Repeat bilateral carotid sonogram Please call neurology consult with Dr. King in a.m. as he is very familiar with the patient and he follows him as an outpatient physician PT eval DVT prophylaxis with Lovenox Diet 2 g sodium (2) Uncontrolled hypertension Status: Acute Problem Text: Patient does not have a history of hypertension, but as per patient, he had similar problem last time when he had a stroke Start patient on hydralazine 10 mg IV push every 6 hours when necessary if systolic is more than 150 progressively will try to bring the pressure down Continue monitoring blood pressure on telemetry (3) Spinal stenosis of lumbar region with neurogenic claudication Status: Acute Problem Text: Status post L4-5 fusion PT eval (4) Trigeminal neuralgia Status: Chronic Problem Text: Stable on carbamazepine Operative levels if not done already Plan / VTE VTE Prophylaxis Ordered?: Yes BRITTA MOSS MD Mar 18, 2019 23:41
[2019-03-19] VITALS (8 sets, daily range): BP systolic 111–159; BP diastolic 55–85
[2019-03-19] MEDS ORDERED: hydrALAZINE INJ 20 MG/ML VIAL IV PRN (01:15)
--- NOTE | 2019-03-19 01:37 | REPVR ---
EXAM: US Duplex Bilateral Extracranial Arteries EXAM DATE/TIME: 03/19/2019 12:53 AM CLINICAL HISTORY: 64 years old, male; Other: TIA; Prior surgery; Surgery date: 6+ months; Surgery type: S/P RT endartectomy in 2016 TECHNIQUE: Imaging protocol: Real-time Duplex ultrasound scan of the Bilateral carotid and vertebral arteries combining davies scale, color Doppler and spectral waveform analysis. COMPARISON: CT Head without contrast 03/18/2019 3:34 PM FINDINGS: Right common carotid artery: The right common carotid artery proximally demonstrates normal waveforms with velocity of 94 cm/s. Mid right common carotid velocity is 74 cm/s and distal velocity is 81 cm/s. Right internal carotid artery: Minimal plaque at the right carotid bifurcation. Right proximal internal carotid artery demonstrates normal waveforms with velocity of 59 cm/s, mid velocity is 80 cm/s and distal is 90 cm/s. Right ICA/CCA ratio: The right ICA/CCA ratio is 0.96. Right external carotid artery: Right external carotid artery demonstrates normal waveforms with velocity of 85 cm/s. Right vertebral artery: The right vertebral artery demonstrates normal antegrade flow with velocity of 50 cm/s. Left common carotid artery: The left proximal common carotid artery demonstrates normal waveforms with velocity of 91 cm/s, mid velocity is 54 cm/s and distal is 44 cm/s. Left internal carotid artery: The left carotid bifurcation demonstrates moderate plaque. The left internal carotid bulb demonstrates velocity of 192 cm/s. Proximal left internal carotid artery velocity is 67 cm/s, mid 60 cm/s and distal is 48 cm/s. Left ICA/CCA ratio: The left ICA/CCA ratio is 0.74. Left external carotid artery: The left external carotid artery demonstrates velocity of 170 cm/s. Left vertebral artery: The left vertebral artery demonstrates antegrade flow with velocity 34 cm/s. IMPRESSION: 1. Plaque at the left carotid bifurcation with estimated 50-70% stenosis of both the left external carotid and internal carotid arteries. 2. No significant stenosis on the right. COMMENT: Carotid Stenosis Reference using SRU criteria: Mild: less than 50% stenosis. ICA PSV is less than 125 cm/second and plaque or intimal thickening is visible. Moderate: 50-69% stenosis. ICA PSV is 125 to 230 cm/second and plaque is visible. Severe: 70-94% stenosis. ICA PSV is more than 230 cm/second and visible plaque and lumen narrowing are seen. Near occlusion: 95-99% stenosis. ICA PSV is variable and significant plaque and luminal narrowing are seen. Occluded: 100% stenosis. No flow identified. Electronically signed by: Balwinder Ross On 03/19/2019 01:37:22 AM
[2019-03-19] MEDS: carBAMazepine XR 200 MG TAB PO SCH ×2 (01:45→08:43)
[2019-03-19 05:32] LABS: HEMATOCRIT 40.4 % (42.0-52.0); HEMOGLOBIN 13.2 g/dl (13.5-17.5); MEAN CORPUSCULAR HEMOGLOBIN 29.8 pg (27.0-33.0); MEAN CORPUSCULAR HGB CONC 32.7 g/dl (32.0-36.5); MEAN CORPUSCULAR VOLUME 91.2 fl (80.0-96.0); PLATELET COUNT, AUTOMATED 197 10^3/uL (150-450); RED BLOOD COUNT 4.43 10^6/uL (4.30-6.10); WHITE BLOOD COUNT 5.3 10^3/uL (4.0-10.0)
[2019-03-19 05:52] LABS: ALBUMIN 3.1 GM/DL (3.2-5.2); ALT/SGPT 24 U/L (12-78); BILIRUBIN,TOTAL 0.3 MG/DL (0.2-1.0); BLOOD UREA NITROGEN 12 MG/DL (7-18); CALCIUM LEVEL 8.2 MG/DL (8.8-10.2); CARBON DIOXIDE LEVEL 30 MEQ/L (21-32); CHLORIDE LEVEL 110 MEQ/L (98-107); CHOLESTEROL LEVEL 257 MG/DL (<200); CHOLESTEROL RISK RATIO 5.354 (<5); CREATININE FOR GFR 0.96 MG/DL (0.70-1.30); GLOMERULAR FILTRATION RATE > 60.0 (>49); GLUCOSE, FASTING 110 MG/DL (70-100); HDL CHOLESTEROL 48 MG/DL (>40); LDL CHOLESTEROL 179 MG/DL (<100); NON-HDL-C 209 MG/DL; POTASSIUM SERUM 3.8 MEQ/L (3.5-5.1); SODIUM LEVEL 143 MEQ/L (136-145); TOTAL PROTEIN 6.3 GM/DL (6.4-8.2); TRIGLYCERIDES LEVEL 152 MG/DL (<150)
[2019-03-19 08:32] LABS: CK-MB VALUE MASS 2.1 NG/ML (<3.6); CPK CREATINE PHOSPHOKINASE 83 U/L (39-308); MB/CK RELATIVE INDEX 2.53 (< OR =4); TROPONIN I < 0.02 NG/ML (< 0.10)
[2019-03-19] MEDS: ENOXAPARIN 40 MG/0.4 ML SYRINGE (J1650) SC SCH (08:44)
[2019-03-19] MEDS: DOCUSATE SODIUM 100 MG CAP PO SCH ×2 (08:44→21:00)
[2019-03-19] MEDS: ASPIRIN 81 MG ENTERIC TAB PO SCH (08:44)
[2019-03-19] MEDS ORDERED: SLF 3 ML SYR IV PRN (10:45)
[2019-03-19 13:17] LABS: FREE T4 0.81 NG/DL (0.76-1.46)
--- NOTE | 2019-03-19 14:40 | CR.PDOC ---
General Date of Consultation: Mar 19, [address] Wynn HPI: 64year oldM admitted with possible TIA symptoms. He had noted some double vision which he states comes and goes and some tingling in the fingers of the Rt hand. The pt states it is both eyes, vision is "off". Vascular surgery is consulted re carotid stenosis. Denies any fevers, chills, weakness, fatigue, Headache, Chest Pain, Shortness of breath, cough, palpitations, abdominal pain, N/V/D or changes in bowel or bladder habits. PMHx: trigeminal neuralgia CVA Carotis stenosis, Rt CEA 2016 Dr Ramirez. PSHX: Rt CEA 2016 Dr Ramirez. L4-5 fusion SOCHX: Tobacco use: Quit 2016 ETOH: denies Illicit Drugs: Denies ROS: As noted in HPI, otherwise 11pt ROS of systems reviewed and unremarkable. PE: GEN: 64yoM, appears stated age. Well-nourished, well developed. No acute distress. Alert and oriented x 3. HEENT: Normocephalic, atraumatic. Sclera are nonicteric. Conjunctiva without injection. Moist mucous membranes. Dentition fair. CHEST: Regular rate and rhythm, +S1, +S2. B/L carotid bruit noted. LUNGS: Clear to auscultation bilaterally. No wheezes, rales, or rhonchi. Breathing appears symmetric and easy. Patient is speaking in full sentences. No accessory muscle use. ABD: Round, soft, non-tender, non-distended. +Bowel sounds throughout. No rebound or guarding. No costovertebral angle tenderness. EXT: Pulses 2+ bilaterally dorsalis pedis and radial. No lower extremity edema appreciated. SKIN: [place], dry, warm. Capillary refill <2sec. No rashes. NEURO: Alert and oriented x 3. Cranial nerves III-XII are intact. No focal deficits appreciated. Carotid US IMPRESSION: 1. Plaque at the left carotid bifurcation with estimated 50-70% stenosis of both the left external carotid and internal carotid arteries. 2. No significant stenosis on the right. COMMENT: Carotid Stenosis Reference using SRU criteria: Mild: less than 50% stenosis. ICA PSV is less than 125 cm/second and plaque or intimal thickening is visible. Moderate: 50-69% stenosis. ICA PSV is 125 to 230 cm/second and plaque is visible. Severe: 70-94% stenosis. ICA PSV is more than 230 cm/second and visible plaque and lumen narrowing are seen. Near occlusion: 95-99% stenosis. ICA PSV is variable and significant plaque and luminal narrowing are seen. Occluded: 100% stenosis. No flow identified. Electronically signed by: Balwinder Ross On 03/19/2019 01:37:22 AM A&P: 1. Carotid stenosis S/P Rt CEA 2015. Pt is reviewed and examined as per Dr Wynn. MRI/MRA of the brain with no acute findings. Carotid US reviewed. Plan to obtain CTA neck to further asses. Further recommendations pending results. Continue ASA 81 mg daily. DVT prophylaxis. Lovenox SQ. Vital Signs/I&O Vital Signs Date Time Temp Pulse Resp B/P (MAP) Pulse Ox O2 Delivery O2 Flow Rate FiO2 03/19/19 08:16 97.5 60 18 135/78 (97) 96 03/19/19 00:30 Room Air I&O- Last 24 Hours up to 6 AM 03/19/19 05:59 Intake Total 0 ml Output Total 0 ml Balance 0 ml Laboratory Data Labs 24H Laboratory Tests 2 03/18/19 15:34: Immature Granulocyte % (Auto) 0.4, White Blood Count 5.6, Red Blood Count 4.87, Hemoglobin 14.6, Hematocrit 44.6, Mean Corpuscular Volume 91.6, Mean Corpuscular Hemoglobin 30.0, Mean Corpuscular Hemoglobin Concent 32.7, Red Cell Distribution Width 13.1, Platelet Count 235, Neutrophils (%) (Auto) 62.9, Lymphocytes (%) (Auto) 25.1, Monocytes (%) (Auto) 9.3H, Eosinophils (%) (Auto) 1.8, Basophils (%) (Auto) 0.5, Neutrophils # (Auto) 3.5, Lymphocytes # (Auto) 1.4L, Monocytes # (Auto) 0.5, Eosinophils # (Auto) 0.1, Basophils # (Auto) 0.0, Nucleated Red Blood Cells % (auto) 0.0, Anion Gap 5L, Glomerular Filtration Rate > 60.0, Blood Urea Nitrogen 10, Creatinine 1.03, Sodium Level 140, Potassium Level 4.3, Chloride Level 106, Carbon Dioxide Level 29, Calcium Level 9.1, Aspartate Amino Transf (AST/SGOT) 17, Alanine Aminotransferase (ALT/SGPT) 30, Alkaline Phosphatase 128H, Total Bilirubin 0.2, Total Protein 7.9, Albumin 4.1, Albumin/Globulin Ratio 1.08, Carbamazepine (Tegretol) Level 7.4 03/19/19 05:09: Nucleated Red Blood Cells % (auto) 0.0, Anion Gap 3L, Glomerular Filtration Rate > 60.0, Blood Urea Nitrogen 12, Creatinine 0.96, Sodium Level 143, Potassium Level 3.8, Chloride Level 110H, Carbon Dioxide Level 30, Calcium Level 8.2L, Aspartate Amino Transf (AST/SGOT) 12, Alanine Aminotransferase (ALT/SGPT) 24, Alkaline Phosphatase 110, Total Bilirubin 0.3, Total Protein 6.3#L, Albumin 3.1#L, Albumin/Globulin Ratio 0.97L, Carbamazepine (Tegretol) Level 5.2, Total Creatine Kinase 83, Triglycerides Level 152H, LDL Cholesterol 179H, Magnesium Level 2.0, Creatine Kinase MB 2.1, Creatine Kinase MB Relative Index 2.53, Troponin I < 0.02, Total Cholesterol 257H, Non-HDL Cholesterol (LDL + VLDL) 209, Total HDL Cholesterol 48, Cholesterol/HDL Ratio 5.354H, Thyroid Stimulating Hormone (TSH) 4.500H, Free Thyroxine 0.81 CBC/BMP Laboratory Tests 03/18/19 15:34 Red Blood Count 4.87, Mean Corpuscular Volume 91.6, Mean Corpuscular Hemoglobin 30.0, Mean Corpuscular Hemoglobin Concent 32.7, Red Cell Distribution Width 13.1, Neutrophils (%) (Auto) 62.9, Lymphocytes (%) (Auto) 25.1, Monocytes (%) (Auto) 9.3 H, Eosinophils (%) (Auto) 1.8, Basophils (%) (Auto) 0.5, Neutrophils # (Auto) 3.5, Lymphocytes # (Auto) 1.4 L, Monocytes # (Auto) 0.5, Eosinophils # (Auto) 0.1, Basophils # (Auto) 0.0, Calcium Level 9.1, Aspartate Amino Transf (AST/SGOT) 17, Alanine Aminotransferase (ALT/SGPT) 30, Alkaline Phosphatase 128 H, Total Bilirubin 0.2, Total Protein 7.9, Albumin 4.1 03/19/19 05:09 Red Blood Count 4.43, Mean Corpuscular Volume 91.2, Mean Corpuscular Hemoglobin 29.8, Mean Corpuscular Hemoglobin Concent 32.7, Red Cell Distribution Width 12.9, Calcium Level 8.2 L, Aspartate Amino Transf (AST/SGOT) 12, Alanine A minotransferase (ALT/SGPT) 24, Alkaline Phosphatase 110, Total Bilirubin 0.3, Total Protein 6.3 #L, Albumin 3.1 #L, Total Creatine Kinase 83, Triglycerides Level 152 H, LDL Cholesterol 179 H Allergies Coded Allergies: penicillin G (Verified Allergy, Unknown, hives, 03/18/19) Ytfxyqu-Cjf-Gwm Reductase Inhibitor (Verified Adverse Reaction, Unknown, myalgia, 03/18/19) ezetimibe (Verified Adverse Reaction, Unknown, myalgia, 03/18/19) Home Medications Scheduled Aspirin (Aspirin EC) 81 Mg Tab, 81 MG PO DAILY, (Reported) Carbamazepine (Carbamazepine ER) 200 Mg Tab.er.12h, 200 MG PO BID, (Reported) Scheduled PRN Naproxen (Naproxen) 500 Mg Tab, 500 MG PO BID PRN for PAIN, (Reported) Maricarmen Chery Mar 19, 2019 14:40
[2019-03-19] MEDS: SLF 3 ML SYR IV SCH ×2 (16:00→22:30)
[2019-03-19] MEDS ORDERED: ISOVUE-370 76% 100ML VIAL (Q9967) As Ordered ONE (16:08)
--- NOTE | 2019-03-19 17:10 | REPVR ---
EXAM: CT Angiography Neck With Contrast EXAM DATE/TIME: 03/19/2019 4:19 PM CLINICAL HISTORY: 64 years old, male; Condition or disease; Other: Carotid stenosis; Prior surgery; Surgery date: 6+ months; Surgery type: Right carotid endarectomy TECHNIQUE: Imaging protocol: Axial computed tomographic angiography images of the neck with intravenous contrast using CT angiography protocol. Coronal and sagittal reformatted images were created and reviewed. 3D rendering: MIP reconstructed images were created and reviewed. Radiation optimization: All CT scans at this facility use at least one of these dose optimization techniques: automated exposure control; mA and/or kV adjustment per patient size (includes targeted exams where dose is matched to clinical indication); or iterative reconstruction. Contrast material: ISOVUE 370;Contrast volume: 100 ml;Contrast route: IV; COMPARISON: No relevant prior studies available. FINDINGS: VASCULATURE: Right common carotid artery: Mild atherosclerotic changes in the common carotid artery on the right without significant stenosis. Right internal carotid artery: There is mild atherosclerotic changes in the proximal right ICA estimated at less than 50 % narrowing which is consistent with a mild stenosis using NASCET criteria. Right external carotid artery: Unremarkable. No occlusion or stenosis of the origin. Right vertebral artery: Dominant right vertebral artery. Left common carotid artery: Unremarkable. No stenosis. No dissection or occlusion. Left internal carotid artery: There is moderate to severe atherosclerotic changes in the proximal left ICA estimated at 60-65% narrowing which is consistent with a moderate stenosis using NASCET criteria. Left external carotid artery: Unremarkable. No occlusion or stenosis of the origin. Left vertebral artery: Unremarkable. No stenosis. No dissection or occlusion. Subclavian arteries: Mild atherosclerotic changes at the origin of left subclavian artery without significant stenosis. Aorta: The aorta demonstrates mild atherosclerotic calcification. NECK: Bones/joints: Degenerative spondylosis cervical spine. Soft tissues: Normal. No significant soft tissue swelling. IMPRESSION: 1. There is mild atherosclerotic changes in the proximal right ICA estimated at less than 50 % narrowing which is consistent with a mild stenosis using NASCET criteria. 2. There is moderate to severe atherosclerotic changes in the proximal left ICA estimated at 60-65% narrowing which is consistent with a moderate stenosis using NASCET criteria. COMMENT: Reference per NASCET criteria for degree of stenosis: Mild: less than 50% stenosis. Moderate: 50-69% stenosis. Severe: 70-94% stenosis. Near occlusion: 95-99% stenosis. Electronically signed by: Michael Chiu On 03/19/2019 17:10:04 PM
--- NOTE | 2019-03-19 17:48 | ECHO ---
DATE OF PROCEDURE: 03/19/2019 REFERRING PHYSICIAN: Salvador Jordan MD INDICATION: Transient cerebral ischemia, unspecified. HEIGHT: 175 cm WEIGHT: 87 kg 2D MEASUREMENTS: Aortic annulus: 2.0 cm Aortic root: 2.6 cm Left atrium: 3.4 cm Inferior vena cava: 2.0 cm with more than 50% respiratory variation. Central venous pressure estimated to be 5-10 mmHg. DOPPLER MEASUREMENTS: Trace aortic regurgitation. No aortic stenosis. Aortic valve velocity: 134 cm/s LVOT velocity: 6.5 cm/s LVOT VTI: 18.7 cm No mitral regurgitation. Mitral E velocity: 72.3 cm/s Mitral A velocity: 82.5 cm/s Mitral deceleration time: 208 ms Very mild tricuspid regurgitation. Very mild pulmonic regurgitation. Pulmonary artery systolic pressure 31 mmHg. MITRAL ANNULAR TISSUE DOPPLER: No recorded. DESCRIPTION: Rhythm was sinus. Image quality was fair. No pericardial effusion. This was a 2D, M-mode, color flow Doppler and pulse wave Doppler examination. Mitral annular tissue Doppler was not performed. CONCLUSIONS: 1. Normal left ventricle internal dimensions and wall thickness. Normal regional left ventricle (LV) wall motion and wall thickening. Normal LV systolic function. Left ventricular ejection fraction (LVEF) 65% by visual estimate. Incomplete assessment of LV diastolic function due to mitral annular tissue Doppler not recorded. 2. Mild aortic valve sclerosis of a three-cuspid aortic valve. Very mild aortic regurgitation. 3. Otherwise normal echocardiogram Doppler findings.
--- NOTE | 2019-03-19 17:49 | IPNPDOC ---
Subjective Date Seen The patient was seen on 03/19/19. Subjective Chief Complaint/HPI Clint was seen and examined this morning while lying upright in bed. He denies any diplopia or blurred vision at this time. He states he is eating and drinking without any issues. He is able to ambulate to the bathroom under his own power without any problems. Patient endorses malaise, a generalized headache, and sporadic "white flashes" in left eye. His headache is reduced in intensity from the forehead headache he had on presentation yesterday. He denies pain, numbness, weakness, paresthesias, feeling lightheaded, feeling dizzy, or synco pe. General: Denies: Chills, Night Sweats Constitutional: Reports: Malaise; Denies: Weakness Eyes: Denies: Pain, Vision change ENT: Reports: Head Aches (Generalized, but decrease in intensity from yesterday's); Denies: Dysphagia Pulmonary: Denies: Dyspnea, Cough, Pleuritic Chest Pain Cardiovascular: Denies: Chest Pain, Palpitations Gastrointestinal: Denies: Nausea, Vomiting, Abdominal Pain Genitourinary: Denies: Dysuria Musculoskeletal: Reports: Back Pain (chronic, in the lumbar region associated with previous L4-5 fusion); Denies: Neck Pain, Arm Pain, Leg Pain Neurological: Reports: Other Symptoms (mild bilateral hand tremors at rest); Denies: Weakness, Numbness, Incoordination, Confusion Objective Physical Examination General Exam: Positive: Alert, Cooperative Eye Exam: Positive: PERRLA, Conjunctiva & lids normal, EOMI (. Patient states that on horizontal movement he had diplopia); Negative: Sclera icteric, Ptosis ENT Exam: Positive: Atraumatic, Mucous membr. moist/pink, Tongue Midline Neck Exam: Positive: Supple, +2 carotid pulse wo bruit; Negative: thyromegaly Chest Exam: Positive: Clear to auscultation, Normal air movement Heart Exam: Positive: Rate Normal, Normal S1, Normal S2 Abdomen Exam: Positive: Normal bowel sounds Extremity Exam: Positive: Normal pulses (. 2+ radial and posterior tibial pulses), Other (. Good capillary refill); Negative: Edema Skin Exam: Positive: Nl turgor and temperature Neuro Exam: Positive: Normal Gait, Normal Speech, Strength at 5/5 X4 ext, Sensation Intact (to light touch upper extremity, lower externa bilaterally), Cranial Nerves 3-12 NL Psych Exam: Positive: Mental status NL, Mood NL, Oriented x 3 Assessment /Plan Problems (1) TIA (transient ischemic attack) Status: Acute Problem Specific Plan: Consult Specialist Problem Text: -History of TIA in late 2015 with right carotid endarterectomy with stent placement in early 2016 done in [place] with Dr. Ramirez; patient follows with Dr. Ramirez for vascular care where left carotid bifurcation stenosis was measured at 70% a month ago -Patient stated he had momentary diplopia with extraocular motion testing when his eyes moved in a horizontal plane, but not in a superior to inferior plane -Carotid duplex vascular ultrasound on this admission showed left carotid bifurcation with 50-70% stenosis of the left external carotid artery and internal carotid artery; no significant stenosis in patient's right carotid artery -Vascular surgery was consulted due to patient's 2 recent carotid ultrasounds (last month with Dr. Ramriez, and this [facility]) showing 70% stenosis of left carotid bifurcation. Vascular ordered a CTA of the neck for tomorrow (03/20) to further assess. Vascular will base further decision(s) for patient on results of tomorrow's CTA neck. -CTA head and MRI of the brain essentially within normal limits and there is no evidence of any ischemic or embolic thromboembolism. -Patient follows neurology locally with Dr. King. Neurology was consulted by hospitalist team due to patient's history and current symptoms of diplopia and blurry vision over the last 3 days prior to presentation at [facility] while on aspirin -Admitted to PCU with telemetry monitoring -C/w home aspirin (81 mg) -Patient is not on statins or ezetimibe due to significant resulting myalgias (leg cramps) per patient -Patient is a former smoker and quit 3 years ago after right carotid enterectomy with stent placement. Prior to quitting, he had a 30 year history of smoking 2 packs of cigarettes per day. He also quit drinking alcohol 6 years ago. (2) Spinal stenosis of lumbar region with neurogenic claudication Status: Acute Problem Text: Status post L4-5 fusion PT eval (3) Trigeminal neuralgia Status: Chronic Problem Text: -Stable on carbamazepine with no acute flares since starting use; carbamazepine trough within normal levels on 2 separate measurements -Patient complains of mild bilateral hand tremors since beginning use of carbamazepine -Continue with home carbamazepine -Neurology was consulted due to patient's TIA history and his likely TIA on this presentation while on aspirin. Patient follows locally with neurology as an outpatient (Dr. King). (4) Hypertensive emergency without congestive heart failure Status: Resolved Response to Treatment: Controlled Problem Text: -Patient presented to the ED with systolic blood pressures in the high 190s and just over 200 with 3 day history of diplopia and blurry vision with roughly 70% stenosis of left carotid bifurcation (left external and internal carotid arteries) visualized on ultrasound -Patient has never been diagnosed with hypertension and does not take any antihypertensive agents, but, per patient, he had similar problem with his TIA in late 2016 -Patient received hydralazine which lowered his pressure. He has remained in the 130s to 150s systolic since. Continue with hydralazine 10 mg every 6 hour when necessary IV if systolic blood pressure is greater than 150 -Continue monitoring patient's blood pressure on telemetry Plan/VTE VTE Prophylaxis Ordered?: Yes (DVT prophylaxis with 40 mg Lovenox subcutaneous) Plan I saw and evaluated the patient. I agree with the findings and plan of care as documented in the above note VS, I&O, 24H, Fishbone Vital Signs/I&O Vital Signs Date Time Temp Pulse Resp B/P (MAP) Pulse Ox O2 Delivery O2 Flow Rate FiO2 03/19/19 12:00 97.5 67 18 131/82 (98) 98 03/19/19 00:30 Room Air I&O- Last 24 Hours up to 6 AM 03/19/19 05:59 Intake Total 0 ml Output Total 0 ml Balance 0 ml Laboratory Data 24H LABS Laboratory Tests 2 03/19/19 05:09: Nucleated Red Blood Cells % (auto) 0.0, Anion Gap 3L, Glomerular Filtration Rate > 60.0, Blood Urea Nitrogen 12, Creatinine 0.96, Sodium Level 143, Potassium Level 3.8, Chloride Level 110H, Carbon Dioxide Level 30, Calcium Level 8.2L, Aspartate Amino Transf (AST/SGOT) 12, Alanine Aminotransferase (ALT/SGPT) 24, Total Creatine Kinase 83, Alkaline Phosphatase 110, Total Bilirubin 0.3, Triglycerides Level 152H, LDL Cholesterol 179H, Total Protein 6.3#L, Albumin 3.1#L, Magnesium Level 2.0, Creatine Kinase MB 2.1, Creatine Kinase MB Relative Index 2.53, Troponin I < 0.02, Albumin/Globulin Ratio 0.97L, Total Cholesterol 257H, Non-HDL Cholesterol (LDL + VLDL) 209, Total HDL Cholesterol 48, Cholesterol/HDL Ratio 5.354H, Thyroid Stimulating Hormone (TSH) 4.500H, Free Thyroxine 0.81, Carbamazepine (Tegretol) Level 5.2 CBC/BMP Laboratory Tests 03/19/19 05:09 Red Blood Count 4.43, Mean Corpuscular Volume 91.2, Mean Corpuscular Hemoglobin 29.8, Mean Corpuscular Hemoglobin Concent 32.7, Red Cell Distribution Width 12.9, Calcium Level 8.2 L, Aspartate Amino Transf (AST/SGOT) 12, Alanine Aminotransferase (ALT/SGPT) 24, Total Creatine Kinase 83, Alkaline Phosphatase 110, Total Bilirubin 0.3, Triglycerides Level 152 H, LDL Cholesterol 179 H, Total Protein 6.3 #L, Albumin 3.1 #L YAN DE OLIVEIRA PGY-1 Mar 19, 2019 17:49 ALICIA LORENZANA MD Mar 20, 2019 17:52
[2019-03-20 04:00] VITALS: BP 104/63
[2019-03-20 05:15] LABS: HEMATOCRIT 40.4 % (42.0-52.0); HEMOGLOBIN 13.5 g/dl (13.5-17.5); MEAN CORPUSCULAR HEMOGLOBIN 30.5 pg (27.0-33.0); MEAN CORPUSCULAR HGB CONC 33.4 g/dl (32.0-36.5); MEAN CORPUSCULAR VOLUME 91.4 fl (80.0-96.0); PLATELET COUNT, AUTOMATED 207 10^3/uL (150-450); RED BLOOD COUNT 4.42 10^6/uL (4.30-6.10); WHITE BLOOD COUNT 5.2 10^3/uL (4.0-10.0)
[2019-03-20 05:38] LABS: BLOOD UREA NITROGEN 17 MG/DL (7-18); CALCIUM LEVEL 8.2 MG/DL (8.8-10.2); CARBON DIOXIDE LEVEL 29 MEQ/L (21-32); CHLORIDE LEVEL 109 MEQ/L (98-107); GLOMERULAR FILTRATION RATE > 60.0 (>49); GLUCOSE, FASTING 89 MG/DL (70-100); POTASSIUM SERUM 4.3 MEQ/L (3.5-5.1); SODIUM LEVEL 144 MEQ/L (136-145)
[2019-03-20] MEDS: SLF 3 ML SYR IV SCH ×2 (06:26→12:38)
[2019-03-20 07:40] LABS: HEMOGLOBIN A1c 6.3 %
[2019-03-20 08:00] VITALS: BP 133/84
[2019-03-20] MEDS: ENOXAPARIN 40 MG/0.4 ML SYRINGE (J1650) SC SCH (09:00)
[2019-03-20] MEDS: ASPIRIN 81 MG ENTERIC TAB PO SCH (09:00)
[2019-03-20] MEDS ORDERED: carBAMazepine XR 100 MG TAB PO SCH (09:00)
[2019-03-20] MEDS: DOCUSATE SODIUM 100 MG CAP PO SCH (09:00)
--- NOTE | 2019-03-20 09:19 | CR ---
DATE OF CONSULTATION: 03/19/2019 REFERRING PHYSICIAN: Dr. Salvador Jordan REASON FOR CONSULTATION: Double vision and blurred vision. HISTORY OF PRESENT ILLNESS: Clint Napoles is a 64-year-old man with history of transient ischemic attack in 2016 who had right carotid endarterectomy in [address] King for trigeminal neuralgia. He has had off and on facial pain for the last 1 or 2 years. He started taking Tegretol 2 months ago. He has felt slight tremor. He saw Dr. King earlier this week. He was asking Dr. King what to look for in terms of side effects. He states that Dr. iKng told him that he can have blurred vision and double vision and the very next day he developed those symptoms. The patient states that Dr. King checked his level of Tegretol. I turned out to be 5.2. He had tried gabapentin for sleeping at night but it made him too doped up. The patient states that Friday this week he was cutting wood when he developed double vision for half an hour. On Friday, he had double vision for 5 minutes. Yesterday he felt blurred vision and flashes of light. When he came to the emergency department, his systolic blood pressure was around 200. He was given hydralazine. His blood pressure now is decreased to systolic 140. He feels tingling numbness in the medial two fingers of right hand. He has slight tremor of hands. He had a slight headache this week. He also felt off and on fullness in his left ear, tinnitus and slight dizziness. DIAGNOSTIC STUDIES: MRI scan of brain showed small vessel ischemic disease of brain. MRA brain was unremarkable. Carotid ultrasound showed 50 - 70% left internal carotid artery stenosis. CT angiogram will be done. LDL was 179 with total cholesterol 257 and HDL 48. ALLERGIES: PENICILLIN, STATINS, ZETIA. HOME MEDICATIONS: - aspirin 81 mg by mouth - Tegretol 200 mg by mouth twice daily - Naproxen 500 mg by mouth twice daily as needed PAST MEDICAL HISTORY: Transient ischemic attack (TIA). Right carotid endarterectomy. Trigeminal neuralgia. Lumbosacral laminectomy. FAMILY HISTORY: No family history of stroke or cancer. SOCIAL HISTORY: Denies smoking, alcohol or illicit drugs. REVIEW OF SYSTEMS: All systems were reviewed and found to be noncontributory except as mentioned in history of present illness. PHYSICAL EXAMINATION: Blood pressure 131/82, temperature 97.5, respiratory rate 18, pulse 67, 98% saturation on room air. Heart: Regular rate and rhythm. Lungs: Clear to auscultation. Abdomen: Soft, nontender, nondistended. No pedal edema. No musculoskeletal abnormalities. No rash. No signs of meningeal irritation. He has slight tremor of his hands. The patient is awake, alert, oriented to place, person and time. Normal speech comprehension and repetition. Recent and distant memory is intact. No facial weakness. Tongue and uvula are midline. No nystagmus. Extraocular muscles are intact. He complains of double vision when looking straight up. Resting downwards, sideways in either direction does not elicit double vision. 5/5 strength in all four extremities. Deep tendon reflexes present throughout. Normal sensation throughout. No dysmetria or ataxia. ASSESSMENT: 1. Diplopia and blurred vision intermittently. 2. Possible side effects of Tegretol. 3. Rule out myasthenia, vitamin B12 and vitamin B1 deficiency. 4. History of transient ischemic attack (TIA) and right carotid endarterectomy. 5. Left internal carotid artery 50 - 70% stenosis. 6. Patient's son is concerned about TIA and requested to add Plavix for 21 days. I am not sure if TIA would cause diplopia only while looking straight up during examination with normal EOM and MRI Brain showing no brainstem acute disease. PLAN: 1. Decrease Tegretol ER to 100 mg by mouth twice daily. If he still feels double vision and no other cause is found. Consider changing it to Lyrica in future. He had failed gabapentin in the past due to side effects. 2. Check vitamin B12, vitamin B1, serum copper, acetylcholine receptor antibody. We will continue aspirin 81 mg by mouth daily. The patient is allergic to statins and Zetia. 3. Add Plavix 75 mg po qd for 21 days at request of his son. 4. Follow with Dr. King and his vascular surgeon. CLAUDIA
[2019-03-20] MEDS ORDERED: CLOPIDOGREL 75 MG TAB PO SCH (10:00)
[2019-03-20] MEDS ORDERED: CARB100T PO (11:48)
[2019-03-20] MEDS ORDERED: CLOP75TA2 PO (11:48)
[2019-03-21 00:06] LABS: Lyme Disease IgG/IgM Antibodie <0.91 ISR (0.00-0.90); Lyme Disease IgM Ab Quantitati <0.80 index (0.00-0.79)
== END 2019-03-20 12:44 | disposition home or self-care (01) ==
LOC: M ED 15:03 → M ED INP 15:04 → M PCU 03-19 01:35
PROVIDERS: ADMIT Internal Medicine; ATTEND Internal Medicine
DX: G45.9 Transient cerebral ischemic attack, unspecified (principal); I16.0 Hypertensive urgency; G50.0 Trigeminal neuralgia; M48.062 Spinal stenosis, lumbar region with neurogenic claudication; Z79.82 Long term (current) use of aspirin; Z79.899 Other long term (current) drug therapy; Z88.0 Allergy status to penicillin; Z88.8 Allergy status to other drugs, medicaments and biological substances; Z86.73 Personal history of transient ischemic attack (TIA), and cerebral infarction without residual deficits; I25.10 Atherosclerotic heart disease of native coronary artery without angina pectoris; Z98.1 Arthrodesis status
CPT/HCPCS: 36415; 70450; 70498; 70544; 70551; 80048; 80053; 80061; 80156; 82525; 82550; 82553; 82607; 83036; 83519; 83735; 84425; 84439; 84443; 85025; 85027; 86617; 93005; 93306; 93880; 96374; 97161; 99285; J1650; Q9967

== ENCOUNTER → 2019-10-05 | Outpatient (CLI) | payer MEDICARE, MEDICAID ==
[~2019-10-05] MED LIST changes: +CARB100T PO; +CARB200T98 PO; +CLOP75TA2 PO
--- NOTE | 2019-10-05 14:13 | ECGEPIP ---
[facility] Test Date: 2019-10-05 Pat Name: SARA PAIZ Department: Room: - Gender: Male Order Builder: RF : [id number] Requested By: Srinivas Hoffmann @ [facility] Order Number: [id number] Reading MD: Nisha Ching Measurements Intervals [place] Rate: 63 P: 30 [place]: 150 QRS: 67 QRSD: 106 T: 8 QT: 416 QTc: 427 Interpretive Statements SINUS RHYTHM NSSTTABN NEW C/W 03/18/19 Electronically Signed on 10-05-2019 14:13:25 EST by Nisha Ching
== END ==
LOC: M EKG 11:08
PROVIDERS: ATTEND Orthopaedic Surgery
DX: Z01.818 Encounter for other preprocedural examination (principal); G56.21 Lesion of ulnar nerve, right upper limb

== ENCOUNTER → 2019-10-14 | Outpatient (CLI) | payer MEDICARE, MEDICAID ==
[~2019-10-14] MED LIST changes: +ISOVUE-370 76% 100ML VIAL (Q9967) As Ordered ONE
--- NOTE | 2019-10-14 10:46 | REPVR ---
PROCEDURE INFORMATION: Exam: CT Angiography Neck With Contrast Exam date and time: 10/14/2019 10:10 AM Age: 64 years old Clinical indication: Other: Occlusion; Additional info: Occlusion and stenosis left carotid art TECHNIQUE: Imaging protocol: Computed tomography angiography of the neck with intravenous contrast. 3D rendering: MIP and/or 3D reconstructed images were created by the technologist. Radiation optimization: All CT scans at this facility use at least one of these dose optimization techniques: automated exposure control; mA and/or kV adjustment per patient size (includes targeted exams where dose is matched to clinical indication); or iterative reconstruction. Contrast material: ISOVUE 370; Contrast volume: 100 ml; Contrast route: IV; COMPARISON: CT ANGIO NECK 03/19/2019 4:25 PM FINDINGS: VASCULATURE: Right common carotid artery: Unremarkable. No stenosis. No dissection or occlusion. Right internal carotid artery: There is mild calcified atherosclerotic plaque in the proximal right internal carotid artery with a mild 10-20% stenosis. Right external carotid artery: Unremarkable. No occlusion or stenosis of the origin. Right vertebral artery: Unremarkable. No stenosis. No dissection or occlusion. Left common carotid artery: Unremarkable. No stenosis. No dissection or occlusion. Left internal carotid artery: Examination reveals moderate partially calcified atherosclerotic plaque at the origin of the left internal carotid artery with complete occlusion at the origin which is new since the previous study. Left external carotid artery: Unremarkable. No occlusion or stenosis of the origin. Left vertebral artery: Unremarkable. No stenosis. No dissection or occlusion. NECK: Bones/joints: Advanced degenerative spondylotic changes are seen in the form of marked disc space narrowing, marginal osteophytes, degenerative endplate changes and severe facet arthropathy at C5-C6 and C6-C7 levels. Soft tissues: Normal. No significant soft tissue swelling. IMPRESSION: 1. Examination reveals moderate partially calcified atherosclerotic plaque at the origin of the left internal carotid artery with complete occlusion at the origin which is new since the previous study. 2. There is mild calcified atherosclerotic plaque in the proximal right internal carotid artery with a mild 10-20% stenosis. COMMENTS: Using NASCET method for measuring degree of carotid artery stenosis: Mild is less than 50% stenosis. Moderate is 50-69% stenosis. Severe is 70-94% stenosis. Near occlusion is 95-99% stenosis. Electronically signed by: Bryson Zimmerman On 10/14/2019 10:46:14 AM
--- NOTE | 2019-10-14 10:48 | REPVR ---
PROCEDURE INFORMATION: Exam: CT Angiography Head With Contrast Exam date and time: 10/14/2019 10:10 AM Age: 64 years old Clinical indication: Other: Occlusion; Additional info: Occlusion and stenosis left carotid art TECHNIQUE: Imaging protocol: Computed tomography angiography of the head with intravenous contrast. 3D rendering: MIP and/or 3D reconstructed images were created by the technologist. Radiation optimization: All CT scans at this facility use at least one of these dose optimization techniques: automated exposure control; mA and/or kV adjustment per patient size (includes targeted exams where dose is matched to clinical indication); or iterative reconstruction. Contrast material: ISOVUE 370; Contrast volume: 100 ml; Contrast route: IV; COMPARISON: CT Head without contrast 03/18/2019 3:34 PM MRA BRAIN W/O CONTRAST 03/18/2019 7:11:33 PM FINDINGS: Right internal carotid artery: Unremarkable. Intracranial segment is patent with no significant stenosis. No aneurysm. Right anterior cerebral artery: Unremarkable. No occlusion or significant stenosis. No aneurysm. Right middle cerebral artery: Unremarkable. No occlusion or significant stenosis. No aneurysm. Right posterior cerebral artery: Unremarkable. No occlusion or significant stenosis. No aneurysm. Right vertebral artery: Unremarkable. No occlusion or significant stenosis. No aneurysm. Left internal carotid artery: Examination reveals new complete occlusion of the petrous and cavernous segments of the left internal carotid artery with retrograde filling of the supraclinoid segment. Left anterior cerebral artery: Unremarkable. No occlusion or significant stenosis. No aneurysm. Left middle cerebral artery: Unremarkable. No occlusion or significant stenosis. No aneurysm. Left posterior cerebral artery: Unremarkable. No occlusion or significant stenosis. No aneurysm. Left vertebral artery: Unremarkable. No occlusion or significant stenosis. No aneurysm. Basilar artery: Unremarkable. No occlusion or significant stenosis. No aneurysm. IMPRESSION: Examination reveals new complete occlusion of the petrous and cavernous segments of the left internal carotid artery with retrograde filling of the supraclinoid segment. Electronically signed by: Bryson Zimmerman On 10/14/2019 10:48:36 AM
== END ==
LOC: M RAD 09:39
PROVIDERS: ATTEND Surgery Vascular Surgery
DX: I65.22 Occlusion and stenosis of left carotid artery (principal)
CPT/HCPCS: 70496; 70498; Q9967

== ENCOUNTER → 2019-10-26 | Outpatient (REF) | payer MEDICARE, MEDICAID ==
[~2019-10-26] MED LIST changes: -ISOVUE-370 76% 100ML VIAL (Q9967) As Ordered ONE
[2019-10-26 13:36] LABS: BASO % 0.6 % (0.0-1.0); EOS # 0.1 10^3/uL (0.0-0.5); EOS % 1.8 % (0.0-3.0); HEMATOCRIT 42.4 % (42.0-52.0); HEMOGLOBIN 14.2 g/dl (13.5-17.5); LYMPH # 1.4 10^3/uL (1.5-5.0); LYMPH % 22.9 % (24.0-44.0); MEAN CORPUSCULAR HEMOGLOBIN 31.1 pg (27.0-33.0); MEAN CORPUSCULAR HGB CONC 33.5 g/dl (32.0-36.5); MEAN CORPUSCULAR VOLUME 92.8 fl (80.0-96.0); MONO # 0.6 10^3/uL (0.0-0.8); MONO % 10.2 % (0.0-5.0); NEUTROPHILS % 64.2 % (36.0-66.0); PLATELET COUNT, AUTOMATED 248 10^3/uL (150-450); RED BLOOD COUNT 4.57 10^6/uL (4.30-6.10); WHITE BLOOD COUNT 6.3 10^3/uL (4.0-10.0)
[2019-10-26 13:47] LABS: INR 0.98; PROTHROMBIN TIME 12.7 SECONDS (11.8-14.0)
[2019-10-26 14:03] LABS: VITAMIN B12 LEVEL 630 PG/ML (247-911)
[2019-10-26 16:40] LABS: ALBUMIN 3.9 GM/DL (3.2-5.2); ALT/SGPT 34 U/L (12-78); BILIRUBIN,TOTAL 0.3 MG/DL (0.2-1.0); BLOOD UREA NITROGEN 20 MG/DL (7-18); CALCIUM LEVEL 9.1 MG/DL (8.8-10.2); CARBON DIOXIDE LEVEL 31 MEQ/L (21-32); CHLORIDE LEVEL 105 MEQ/L (98-107); CHOLESTEROL LEVEL 282 MG/DL (<200); CREATININE FOR GFR 1.09 MG/DL (0.70-1.30); FREE T4 1.11 NG/DL (0.76-1.46); GLOMERULAR FILTRATION RATE > 60.0 (>49); GLUCOSE, FASTING 89 MG/DL (70-100); HDL CHOLESTEROL 46 MG/DL (>40); LDL CHOLESTEROL 159 MG/DL (<100); NON-HDL-C 236 MG/DL; POTASSIUM SERUM 4.4 MEQ/L (3.5-5.1); SODIUM LEVEL 140 MEQ/L (136-145); TOTAL PROTEIN 6.9 GM/DL (6.4-8.2); TRIGLYCERIDES LEVEL 383 MG/DL (<150)
[2019-10-26 17:24] LABS: HEMOGLOBIN A1c 6.1 %
== END ==
LOC: M SFHCPLAZ 11:07
PROVIDERS: ATTEND Family Medicine
DX: E53.8 Deficiency of other specified B group vitamins (principal); R73.01 Impaired fasting glucose; G45.9 Transient cerebral ischemic attack, unspecified; E78.2 Mixed hyperlipidemia
CPT/HCPCS: 36415; 80053; 80061; 82607; 83036; 84439; 84443; 85025; 85610; 85730; 93005; G0463

== ENCOUNTER → 2020-02-24 | Outpatient (CLI) | payer MEDICARE, MEDICAID | LOC: M LABSMTC 11:07 | PROVIDERS: ATTEND Physical Medicine & Rehabilitation | DX: Z03.818 Encounter for observation for suspected exposure to other biological agents ruled out (principal); Z11.59 Encounter for screening for other viral diseases ==

== ENCOUNTER → 2020-05-24 | Outpatient (CLI) | payer MEDICARE, MEDICAID | LOC: M LABSMTC 13:32 | PROVIDERS: ATTEND Physical Medicine & Rehabilitation | DX: Z01.812 Encounter for preprocedural laboratory examination (principal); Z20.828 Contact with and (suspected) exposure to other viral communicable diseases ==

== ENCOUNTER → 2020-09-07 | Outpatient (REF) | payer MEDICARE ==
[2020-09-07 18:42] LABS: ALBUMIN 3.9 GM/DL (3.2-5.2); ALT/SGPT 29 U/L (12-78); BILIRUBIN,TOTAL 0.3 MG/DL (0.2-1.0); BLOOD UREA NITROGEN 10 MG/DL (7-18); CALCIUM LEVEL 9.1 MG/DL (8.8-10.2); CARBON DIOXIDE LEVEL 31 MEQ/L (21-32); CHLORIDE LEVEL 107 MEQ/L (98-107); CREATININE FOR GFR 1.05 MG/DL (0.70-1.30); GLOMERULAR FILTRATION RATE > 60.0 (>49); GLUCOSE, FASTING 78 MG/DL (70-100); POTASSIUM SERUM 4.9 MEQ/L (3.5-5.1); SODIUM LEVEL 142 MEQ/L (136-145); TOTAL PROTEIN 7.1 GM/DL (6.4-8.2)
[2020-09-07 18:50] LABS: BASO % 0.6 % (0.0-1.0); EOS # 0.1 10^3/uL (0.0-0.5); EOS % 1.9 % (0.0-3.0); HEMOGLOBIN 14.6 g/dl (13.5-17.5); LYMPH # 1.4 10^3/uL (1.5-5.0); LYMPH % 28.8 % (24.0-44.0); MEAN CORPUSCULAR HEMOGLOBIN 30.2 pg (27.0-33.0); MEAN CORPUSCULAR HGB CONC 31.7 g/dl (32.0-36.5); MONO # 0.5 10^3/uL (0.0-0.8); MONO % 11.3 % (0.0-5.0); NEUTROPHILS # 2.7 10^3/uL (1.5-8.5); PLATELET COUNT, AUTOMATED 264 10^3/uL (150-450); RED BLOOD COUNT 4.84 10^6/uL (4.30-6.10); WHITE BLOOD COUNT 4.7 10^3/uL (4.0-10.0)
== END ==
LOC: M SFHCADAM 14:06
PROVIDERS: ATTEND Family Medicine
DX: Z01.818 Encounter for other preprocedural examination (principal); M25.521 Pain in right elbow
CPT/HCPCS: 80053; 85025; G0463

== ENCOUNTER → 2020-12-12 | Outpatient (CLI) | payer MEDICARE ==
[2020-12-12 14:12] LABS: BASO % 0.6 % (0.0-1.0); EOS # 0.1 10^3/uL (0.0-0.5); EOS % 1.5 % (0.0-3.0); HEMATOCRIT 44.7 % (42.0-52.0); HEMOGLOBIN 14.6 g/dl (13.5-17.5); LYMPH # 1.5 10^3/uL (1.5-5.0); MEAN CORPUSCULAR HEMOGLOBIN 30.8 pg (27.0-33.0); MEAN CORPUSCULAR HGB CONC 32.7 g/dl (32.0-36.5); MEAN CORPUSCULAR VOLUME 94.3 fl (80.0-96.0); MONO # 0.7 10^3/uL (0.0-0.8); MONO % 12.3 % (2.0-8.0); NEUTROPHILS # 3.1 10^3/uL (1.5-8.5); NEUTROPHILS % 57.2 % (36.0-66.0); PLATELET COUNT, AUTOMATED 292 10^3/uL (150-450); RED BLOOD COUNT 4.74 10^6/uL (4.30-6.10); WHITE BLOOD COUNT 5.4 10^3/uL (4.0-10.0)
[2020-12-12 14:41] LABS: BLOOD UREA NITROGEN 8 MG/DL (7-18); CREATININE FOR GFR 0.93 MG/DL (0.70-1.30); GLUCOSE, FASTING 86 MG/DL (70-100)
[2020-12-12 14:42] LABS: ALBUMIN 3.8 GM/DL (3.2-5.2); ALT/SGPT 25 U/L (12-78); BILIRUBIN,TOTAL 0.2 MG/DL (0.2-1.0); CALCIUM LEVEL 9.1 MG/DL (8.8-10.2); CARBAMAZEPINE (TEGRETOL) LEVEL 8.8 UG/ML (4.0-10.0); CARBON DIOXIDE LEVEL 33 MEQ/L (21-32); CHLORIDE LEVEL 104 MEQ/L (98-107); GLOMERULAR FILTRATION RATE > 60.0 (>49); POTASSIUM SERUM 4.6 MEQ/L (3.5-5.1); SODIUM LEVEL 139 MEQ/L (136-145)
[2020-12-12 14:49] LABS: VITAMIN B12 LEVEL > 2000 PG/ML (247-911)
[2020-12-13 16:10] LABS: IgG P18 AB Absent (.); IgG P23 AB Absent (.); IgG P28 AB Absent (.); IgG P30 AB Absent (.); IgG P39 AB Absent (.); IgG P41 AB Absent (.); IgG P45 AB Absent (.); IgG P66 AB Absent (.); IgG P93 AB Absent (.); IgM P23 AB Absent (.); IgM P39 AB Absent (.); IgM P41 AB Absent (.); LYME IgG WB INTERPRETATION Negative (.); LYME IgM WB INTERPRETATION Negative (.)
== END ==
LOC: M PLALAB 11:09
PROVIDERS: ATTEND Psychiatry & Neurology Neurology
DX: M25.50 Pain in unspecified joint (principal)

== ENCOUNTER → 2021-04-13 | Outpatient (CLI) | payer MEDICARE ==
--- NOTE | 2021-04-15 17:02 | REPVR ---
PROCEDURE INFORMATION: Exam: MR Lumbar Spine Without Contrast Exam date and time: 04/13/2021 1:54 PM Age: 66 years old Clinical indication: Low back pain; Prior surgery; Surgery date: 6+ months; Additional info: Spondylosis w/ radiculopathy ? stenosis TECHNIQUE: Imaging protocol: Multiplanar magnetic resonance images of the lumbar spine without intravenous contrast. COMPARISON: MRI-Spine, L.S. without con 04/05/2016 4:16 PM FINDINGS: Vertebrae: There are postop changes from posterior fusion at L4-L5 with pedicle screws. There is metallic artifact but the study is diagnostic. There is stable 5 mm of anterolisthesis of L4-L5. Disc spaces: There is loss of disc space height and T2 signal throughout the S1 intervertebral disc spaces most focal at L4-L5, related to degenerative disc disease. Spinal cord: Normal signal. No cord compression. The conus extends to L1. L1-L2: There is a diffuse bulge which flattens the sac and extends into the left neural foramina. It extends to the left L1 root in the extraforaminal location unchanged. There are moderate facet joint degenerative changes and ligamentum flavum hypertrophy with stable moderate central stenosis and bilateral lateral recess stenosis. L2-L3: There appears to been posterior decompression. There is recurrent moderate central stenosis. There is a left foraminal and intrusion with mass effect on the left L2 root finding which may result in left L2 radiculopathy appears unchanged. L3-L4: There appears to been posterior decompression performed with recurrence severe central stenosis and bilateral lateral recess stenosis left greater right. There is a diffuse bulge left foraminal and extraforaminal annular fissure. There is a 4 mm rounded region of increased T2 signal extending from the central aspect the right facets (13/601) which could represent a synovial cyst and further complicates the central stenosis. L4-L5: There are postoperative changes from posterior fusion and decompression. The central canal is well decompressed. There is stable narrowing neural foramina. L5-S1: There is a central bulge with an annular fissure which does not cause mass effect. There is a left foraminal bulge which extends the left L5 root. There are mild to moderate facet joint degenerative changes. No significant spinal canal stenosis. There is narrowing the left foramina and the combination the findings could result in a left L5 radiculopathy. Soft tissues: Unremarkable. IMPRESSION: 1. Status post posterior decompression and fusion at L4-L5. The central canal is decompressed. 2. At L3-L4, there appears to been posterior decompression, with recurrent severe central stenosis and bilateral lateral recess stenosis. There may be a 4 mm synovial cyst extending from the central aspect of the right facet joint further complicating the central. 3. At L2-L3, there is been decompression. There is recurrent moderate central stenosis. There is a left foraminal protrusion which extends to the left L2 root at the foraminal and extraforaminal location may result in left L2 radiculopathy. 4. There are other levels of degenerative changes without change. 5. If operative therapy is indicated a repeat study without with IV contrast may be indicated. Electronically signed by: Rafael Bonilla On 04/15/2021 17:02:07 PM
== END ==
LOC: M PLAIMG 12:44
PROVIDERS: ATTEND Physician Assistant
DX: M47.27 Other spondylosis with radiculopathy, lumbosacral region (principal)

== ENCOUNTER → 2021-05-03 | Outpatient (REF) | payer MEDICARE ==
[2021-05-03 17:12] LABS: PLATELET COUNT, AUTOMATED 270 10^3/uL (150-450)
[2021-05-03 17:44] LABS: PROTHROMBIN TIME 13.6 SECONDS (12.7-14.5)
[2021-05-03 17:45] LABS: PARTIAL THROMBOPLASTIN TIME 34.8 SECONDS (25.9-37.0)
== END ==
LOC: M LABDRWAD 16:37
PROVIDERS: ATTEND Physical Medicine & Rehabilitation
DX: M48.07 Spinal stenosis, lumbosacral region (principal)

== ENCOUNTER → 2022-02-07 | Outpatient (CLI) | payer MEDICARE ==
[~2022-02-07] MED LIST changes: +FLUO-215 TOP; -FLUO5OI TOP
[2022-02-07 17:07] LABS: PLATELET COUNT, AUTOMATED 246 10^3/uL (150-450)
[2022-02-07 17:25] LABS: INR 0.9; PROTHROMBIN TIME 12.5 SECONDS (12.7-14.5)
[2022-02-07 17:26] LABS: PARTIAL THROMBOPLASTIN TIME 32.2 SECONDS (25.9-37.0)
== END ==
LOC: M PLALAB 14:29
PROVIDERS: ATTEND Physician Assistant
DX: M47.816 Spondylosis without myelopathy or radiculopathy, lumbar region (principal)

== ENCOUNTER → 2022-04-12 | Outpatient (CLI) | payer MEDICARE, MEDICAID | LOC: M PLAIMG 10:46 | PROVIDERS: ATTEND Physician Assistant | DX: M47.896 Other spondylosis, lumbar region (principal); Z01.818 Encounter for other preprocedural examination; M47.26 Other spondylosis with radiculopathy, lumbar region; Z96.89 Presence of other specified functional implants; M51.26 Other intervertebral disc displacement, lumbar region; M48.061 Spinal stenosis, lumbar region without neurogenic claudication; M99.63 Osseous and subluxation stenosis of intervertebral foramina of lumbar region; M51.27 Other intervertebral disc displacement, lumbosacral region; M51.36 Other intervertebral disc degeneration, lumbar region ==

== ENCOUNTER → 2022-11-14 | Outpatient (CLI) | payer MEDICARE ==
[~2022-11-14] MED LIST changes: -FLUO-215 TOP; +FLUO5OI TOP
== END ==
LOC: M RAD 12:03
PROVIDERS: ATTEND Physician Assistant
DX: M51.26 Other intervertebral disc displacement, lumbar region (principal); M25.78 Osteophyte, vertebrae

== ENCOUNTER → 2022-11-14 | Outpatient (CLI) | payer MEDICARE, OTHER | LOC: M RAD 12:01 | PROVIDERS: ATTEND Physician Assistant | DX: I65.23 Occlusion and stenosis of bilateral carotid arteries (principal) ==

== ENCOUNTER → 2023-06-26 | Outpatient (CLI) | payer MEDICARE | LOC: M PLARAD 10:48 | PROVIDERS: ATTEND Physician Assistant Surgical | DX: M48.062 Spinal stenosis, lumbar region with neurogenic claudication (principal); M47.896 Other spondylosis, lumbar region; M54.16 Radiculopathy, lumbar region ==

== ENCOUNTER → 2023-09-18 | Outpatient (CLI) | payer MEDICARE | LOC: M PLARAD 13:52 | PROVIDERS: ATTEND Orthopaedic Surgery | DX: M48.062 Spinal stenosis, lumbar region with neurogenic claudication (principal); M47.896 Other spondylosis, lumbar region ==